=== PATIENT | male | born 1985 | race Caucasian/White ===

== ENCOUNTER 2017-12-15 16:46 | Emergency (ER) | payer BC, SELFPAY ==
[2017-12-15 16:58] VITALS: BP 156/95; PULSE 72; RESP 18; TEMP 36.8; O2SAT 97; BMI 37.5
--- NOTE | 2017-12-15 17:39 | HMH.EDUTC ---
[facility] [place] Clinical Impression: Viral upper respiratory illness Disposition: Home, Self-Care Condition on Discharge: Good Instructions: DI for Viral Upper Respiratory Infection -- Adult Additional Instructions: * No sign of bacterial infection. Likely viral. Virus can take 7-14 days to run their course * Nasal Saline to remove nasal drainage and help with nasal congestion. Hard to eat, drink, sleep with nasal congestion so important to keep nose cleaned out * Monitor Temp. Follow up if fevers develop * Encourage fluids, water, gatorade, powerade, pedialyte if infant/toddler/child * warm salt water gargles * warm fluids * sore throat lozenges * sleep elevated * humidifier/vaporizer * Bromfed may cause drowsiness. Know how it effects you (or your child) before driving, caring for small children, or sending your child to school. No other antihistamines/allergy medications while taking bromfed. * * Your throat swab was sent for culture. Those results are typically sent to your primary care. Be sure to follow up in 2-3 days if no improvement so they can review those results and treat if necessary. If you don't have primary care, I recommend you get one but in the mean time, you will have to return to a walk in clinic. Prescriptions: Brompheniramine/Pseudoephed/Dm [Bromfed DM Cough Syrup 5mL] 10 ml PO QID PRN #240 ml PRN Reason: Cough Referrals: Anahy Berrios [Primary Care Provider] - (Follow up IMMEDIATELY for new or worsening symptoms OR no noticeable improvement over the next 48-72 hours. 911 for difficulty breathing or swallowing) Time of Disposition: 18:11 Medical Decision Making Vital Signs: 12/15/17 16:58 Temperature 98.3 F Temperature Source Temporal Artery Scan Pulse Rate [Brachial] 72 Respiratory Rate 18 Blood Pressure [Right Arm] 156/95 Blood Pressure Mean [Right Arm] 115 Blood Pressure Source [Right Arm] Automatic Cuff Blood Pressure Position [Right Arm] Sitting 02 Sat by Pulse Oximetry 97 - Lab Data Lab results reviewed: Yes: I reviewed the patient's lab results. Flu A neg Flu B neg Strep neg - Max Inquiry Pt receiving controlled substance: No [facility] [place] - General Stated complaint: headache Time Seen by Provider: 12/15/17 17:35 Mode of Arrival: Ambulatory Source of Information: Patient Limitations: No Limitations Description of Symptoms (Recalled from Triage Doc. by RN): H/A, DIARRHEA, SINUS PRESSURE AND COUGH SINCE YESTERDAY HEENT Symptoms (Recalled from RN notes): Yes Resp Symptoms (Recalled from RN notes): Yes Skin Symptoms (Recalled from RN notes): No MS Symptoms (Recalled from RN notes): No Functional Status (Recalled from RN notes): NA - History of Present Illness Provider Complaint: Here w/ c/o I am sick and shitting. Not sure what else you want me to say. Was able to finally pull out other symptoms; headache, scratchy throat, nasal congestion. everyone in house has had either flu a, flu b, strep and now a URI within the last 2 weeks. Theraflu today hasn't helped. Diarrhea loose, 2-3 times today. No n/v/abdominal pain. - Related Data Previous Rx's Medication Instructions Recorded Brompheniramine/Pseudoephed/Dm 10 ml PO QID PRN #240 ml 12/15/17 [Bromfed DM Cough Syrup 5mL] Allergies Allergy/AdvReac Type Severity Reaction Status Date / Time No Known Allergies Allergy Unverified 09/27/17 15:35 - Worker's Comp Is this a Worker's Comp case?: No [facility] History I have reviewed the patient's past medical history: Yes (denies any PMHx) Medical History: Denies:: Diabetes Mellitus Type 1, Diabetes Mellitus Type 2, Hypertension Other Surgeries: Yes: Other (cholecystectomy) - Social History Smoking Status: Current every day smoker Alcohol Intake: never - Psychiatric History Expresses thoughts of harming self/others: None Suicide Plan Description: No Plan ROS Obtained: Yes Systems reviewed as appropriate & no additional complaints - Constitutional
--- NOTE | 2017-12-15 17:43 | ED_ITS ---
[facility] [place] Clinical Impression: Viral upper respiratory illness Disposition: Home, Self-Care Condition on Discharge: Good Instructions: DI for Viral Upper Respiratory Infection -- Adult Additional Instructions: * No sign of bacterial infection. Likely viral. Virus can take 7-14 days to run their course * Nasal Saline to remove nasal drainage and help with nasal congestion. Hard to eat, drink, sleep with nasal congestion so important to keep nose cleaned out * Monitor Temp. Follow up if fevers develop * Encourage fluids, water, gatorade, powerade, pedialyte if infant/toddler/ child * warm salt water gargles * warm fluids * sore throat lozenges * sleep elevated * humidifier/vaporizer * Bromfed may cause drowsiness. Know how it effects you (or your child) before driving, caring for small children, or sending your child to school. No other antihistamines/allergy medications while taking bromfed. * * Your throat swab was sent for culture. Those results are typically sent to your primary care. Be sure to follow up in 2-3 days if no improvement so they can review those results and treat if necessary. If you don't have primary care , I recommend you get one but in the mean time, you will have to return to a walk in clinic. Prescriptions: Brompheniramine/Pseudoephed/Dm [Bromfed DM Cough Syrup 5mL] 10 ml PO QID PRN # 240 ml PRN Reason: Cough Referrals: Anahy Berrios [Primary Care Provider] - (Follow up IMMEDIATELY for new or worsening symptoms OR no noticeable improvement over the next 48-72 hours. 911 for difficulty breathing or swallowing) Time of Disposition: 18:11 Medical Decision Making Vital Signs: 12/15/17 16:58 Temperature 98.3 F Temperature Source Temporal Artery Scan Pulse Rate [Brachial] 72 Respiratory Rate 18 Blood Pressure [Right Arm] 156/95 Blood Pressure Mean [Right Arm] 115 Blood Pressure Source [Right Arm] Automatic Cuff Blood Pressure Position [Right Arm] Sitting 02 Sat by Pulse Oximetry 97 - Lab Data Lab results reviewed: Yes: I reviewed the patient's lab results. Flu A neg Flu B neg Strep neg - Max Inquiry Pt receiving controlled substance: No [facility] [place] - General Stated complaint: headache Time Seen by Provider: 12/15/17 17:35 Mode of Arrival: Ambulatory Source of Information: Patient Limitations: No Limitations Description of Symptoms (Recalled from Triage Doc. by RN): H/A, DIARRHEA, SINUS PRESSURE AND COUGH SINCE YESTERDAY HEENT Symptoms (Recalled from RN notes): Yes Resp Symptoms (Recalled from RN notes): Yes Skin Symptoms (Recalled from RN notes): No MS Symptoms (Recalled from RN notes): No Functional Status (Recalled from RN notes): NA - History of Present Illness Provider Complaint: Here w/ c/o I am sick and shitting. Not sure what else you want me to say. Was able to finally pull out other symptoms; headache , scratchy throat, nasal congestion. everyone in house has had either flu a, flu b, strep and now a URI within the last 2 weeks. Theraflu today hasn't helped. Diarrhea loose, 2-3 times today. No n/v/abdominal pain. - Related Data Previous Rx's Medication Instructions Recorded Brompheniramine/Pseudoephed/Dm 10 ml PO QID PRN #240 ml 12/15/17 [Bromfed DM Cough Syrup 5mL] Allergies Allergy/AdvReac Type Severity Reaction Status Date / Time No Known Allergies Allergy Unverified 09/27/17 15:35 - Worker's Comp
[2017-12-15 18:13] LABS: UTC Influenza A Antigen Negative (Negative); UTC Influenza B Antigen Negative (Negative); UTC Strep Screen (Rapid) Negative (Negative)
[2017-12-15 18:17] VITALS: BP 138/93; PULSE 72; RESP 18; TEMP 36.8; O2SAT 97
== END 2017-12-15 18:18 | disposition home or self-care (01) ==
PROVIDERS: Emergency Provider Nurse Practitioner Family; PCP Family Medicine Addiction Medicine
DX: J06.9 Acute upper respiratory infection, unspecified (principal)
CPT/HCPCS: 87804; 87880; 99203

== ENCOUNTER 2020-06-19 16:04 | Emergency (ER) | payer BC, SELFPAY ==
[2020-06-19 16:34] VITALS: BP 141/100; PULSE 80; RESP 16; TEMP 37.1; O2SAT 97; BMI 39.9
--- NOTE | 2020-06-19 16:39 | HMH.EDUTC ---
[facility] [place] Clinical Impression: Diarrhea Qualifiers: Diarrhea type: unspecified type Qualified Code(s): R19.7 - Diarrhea, unspecified Disposition: Home, Self-Care Condition on Discharge: Good Instructions: Diarrhea, DI for Nausea -- Adult, Ondansetron, Dicyclomine, Preventing the Spread of Coronavirus Discharge Instructions Additional Instructions: ? Drink extra fluids with and between meals. If you have difficulty drinking, try very small amounts of water or suck on ice chips. ? Avoid fruit juices, as these do not replace minerals and can actually increase diarrhea. ? Children and adults can use sports drinks to replenish electrolytes. Younger children and infants should use products formulated for children, like oral rehydration solutions. ? Eat food in small amounts and let your stomach recover. ? Get lots of rest. You may feel tired or weak. ? No greasy or fried foods for the next 24-48 hours BRAT diet Bananas Rice Apples and [place] ? Make sure to drink plenty of liquids ? Return if needed ? Straight to ER if any life threatening symptoms ? Zofran as prescribed ? You was given an outpatient order for diarrhea panel, please collect specimen and bring back to outpatient lab then call back to the [facility] or follow up with family doctor for results Follow up with family doctor in the next 48-72 hours if no improvement You was tested for COVID, call back to the [facility] in the next 48-72 hours to see if your test results are back and the result You was given handout with instructions for self quarantine and self isolation make sure to follow those instructions Prescriptions: Ondansetron [Zofran 4mg ODT] 4 mg PO Q8HP PRN #10 tab.rapdis PRN Reason: Nausea Transmission Status: Received by [facility] # Dicyclomine HCl [Bentyl 10mg capsule] 10 mg PO TID PRN #15 cap PRN Reason: Cramping Transmission Status: Received by [facility] # Referrals: PCP,No [Primary Care Provider] - As needed Time of Disposition: 17:10 Medical Decision Making - Max Inquiry Pt receiving controlled substance: No Max was queried for this patient: No Vital Signs: 06/19/20 16:34 06/19/20 17:08 06/19/20 17:10 Temperature 98.7 F 98.7 F Temperature Source Oral Pulse Rate 88 Pulse Rate [Right Brachial] 80 88 Respiratory Rate 16 21 16 Blood Pressure 130/84 Blood Pressure [Right Arm] 141/100 H 130/84 Blood Pressure Mean [Right Arm] 113 99 Blood Pressure Source [Right Arm] Automatic Cuff Automatic Cuff Blood Pressure Position [Right Arm] Sitting Sitting 02 Sat by Pulse Oximetry 97 99 Oxygen Delivery Method Room Air Room Air Orders (Tests/Meds): ED MEDICATIONS Discontinued Medications Generic Name Dose Route Start Last Admin Trade Name Freq PRN Reason Stop Dose Admin Dicyclomine HCl 10 mg 06/19/20 16:34 06/19/20 16:43 Bentyl 10mg Capsule PO 06/19/20 16:35 10 mg ONCE ONE Administration Ondansetron HCl 4 mg 06/19/20 16:42 06/19/20 16:43 Zofran 4mg Odt SL 06/19/20 16:43 4 mg ONCE ONE Administration ORDERS Category Date Time Status Covid-19 Nasal PCR Sendout Terry Stat Lab 06/19/20 17:00 Received Diarrhea 23 Panel, PCR Stat Lab 06/19/20 16:34 Ordered Medical Decision Narrative: No vomiting or diarrhea since arrival States that he feels better after medication that it helped with nausea and cramping [facility] [place] - General Stated complaint: Diarrehea,[place],AP Time Seen by Provider: 06/19/20 16:39 Mode of Arrival: Ambulatory Source of Information: Patient Limitations: No Limitations Description of Symptoms (Recalled from Triage Doc. by RN): PATIENT C/O WATERY DIARRHEA, AND HEADACHE HEENT Symptoms (Recalled from RN notes): Yes Resp Symptoms (Recalled from RN notes): No Skin Symptoms (Recalled from RN notes): No MS Symptoms (Recalled from RN notes): No Functional Status (Recalled from RN notes): WNL - History of Present Illness Provider Complaint: Patient s
[2020-06-19 17:08] VITALS: BP 130/84; PULSE 88; RESP 21; TEMP 37.1; O2SAT 99
[2020-06-19 17:10] VITALS: BP 130/84; PULSE 88; RESP 16; O2SAT 99
[2020-06-21 13:20] LABS: Covid-19 Nasal PCR Sendout Lex Not Detected
== END 2020-06-19 17:10 | disposition home or self-care (01) ==
PROVIDERS: Emergency Provider Nurse Practitioner
DX: R19.7 Diarrhea, unspecified (principal); R51 Headache; Z03.818 Encounter for observation for suspected exposure to other biological agents ruled out
CPT/HCPCS: 99202; U0004

== ENCOUNTER 2020-09-28 12:48 | Emergency (ER) | payer BC, SELFPAY ==
[2020-09-28 12:49] VITALS: BP 167/92; PULSE 78; RESP 16; TEMP 37; O2SAT 100; BMI 42.0
[2020-09-28 13:00] VITALS: BMI 39.8
--- NOTE | 2020-09-28 13:00 | CT_ITS ---
PROCEDURE: CT ABDOMEN PELVIS WO CON CLINICAL INDICATION: possible kidney stone Right flank pain. History of kidney stones COMPARISON: CT ABDPELW/O CT ABD PELVIS W/O CONTRAST from 05/18/2017 TECHNIQUE: Axial images obtained with sagittal and coronal reformats. All CT scans at the facility use one or more dose reduction, viz: automated exposure control, ma/kV adjustment per patient size (including targeted exams where dose is matched to indication, i.e. head), or iterative reconstruction technique. FINDINGS: LOWER THORAX: There are few small nodules in the left lower lobe which appear stable. These are 5 mm or less. ABDOMEN & PELVIS: The liver, spleen, adrenal glands, pancreas, and kidneys have an unremarkable appearance. No renal or ureteral calculi. No hydronephrosis. No evidence of appendicitis. No intestinal obstruction or free air the. There is a small umbilical hernia which contains fat. No evidence of diverticulitis. There are scattered small nodes in the mesenteries and right lower quadrant. These are nonspecific. There appears to be an elongated diverticulum in the right lower quadrant projecting off of the small bowel best seen on images number 96 through 99 with some soft tissue density at the tip of the diverticulum. This could represent a Meckel's diverticulum. This however is not at the terminal ileum region but more distal 1/3 of the ileum. No inflammation evident around this lesion. No acute bony findings. IMPRESSION: 1. No acute finding. No evidence of renal or ureteral calculi. No evidence of appendicitis. 2. Elongated small bowel diverticulum in the right lower quadrant possibly related to a Meckel's diverticulum. 3. Other nonacute findings as described above. Dictated by: Nehemias George MD 09/28/2020 14:31 Nehemias George MD in [place] 09/28/2020 14:31
--- NOTE | 2020-09-28 13:01 | XR_ITS ---
PROCEDURE: XR LUMBAR SPINE 2-3V CLINICAL INDICATION: back pain COMPARISON: No exams were available for comparison FINDINGS: No fracture or dislocation. No lytic or blastic change. There is normal mineralization. There is decrease in the L5-S1 disc space suggesting mild degenerative disc disease. Other findings:None. IMPRESSION: Mild degenerative disc disease L5-S1 otherwise negative Dictated by: Nehemias George MD 09/28/2020 16:03 Nehemias George MD in [place] 09/28/2020 16:03
[2020-09-28 13:24] LABS: Basophils # 0.1 K/mm3 (0-0.2); Eosinophils # 0.2 K/mm3 (0.0-0.4); Eosinophils % 3.1 % (0.1-12.0); Hematocrit 54.2 % (42.0-52.0); Lymphocytes # 2.8 K/mm3 (0.7-4.5); Lymphocytes % 34.9 % (10-50); Mean Corpuscular HGB Conc 33.4 g/dL (31.8-35.4); Mean Corpuscular Hemoglobin 32.4 pg (27.0-31.2); Mean Platelet Volume 7.1 fl (7.4-10.4); Monocytes # 0.5 K/mm3 (0.1-1.0); Monocytes % 5.8 % (1.7-9.3); Neutrophils # 4.3 K/mm3 (1.8-7.8); Neutrophils % 55.1 % (37.0-80.0); Platelet Count 385 K/mm3 (142-424); Red Blood Count 5.59 M/mm3 (4.60-6.20); Red Cell Distribution Width 12.9 % (11.5-17.5); White Blood Count 7.9 K/mm3 (4.8-10.8)
[2020-09-28 13:25] LABS: Hemoglobin 18.1 g/dL (14.1-18.0)
--- NOTE | 2020-09-28 13:26 | PC.NURSE ---
patient to radiology at 1319
[2020-09-28 13:35] LABS: Alanine Aminotransferase 87 U/L (12-78); Albumin Level 4.8 g/dl (3.5-5.0); Albumin/Globulin Ratio 1.4 (1.1-1.8); Alkaline Phosphatase 107 U/L (38-126); Amylase 101 U/L (30-110); Anion Gap 13.9 mEq/L (5-15); Aspartate Amino Transferase 54 U/L (17-59); Bilirubin,Total 0.8 mg/dl (0.2-1.3); Blood Urea Nitrogen 18 mg/dl (9-20); Calcium 9.9 mg/dl (8.4-10.2); Carbon Dioxide 27 mmol/L (22.0-30.0); Chloride 103 mmol/L (98-107); Creatinine Clearance Estimated 230 mL/min (50-200); Estimated Glomerular Filt Rate 97 ml/min (>60); GFR (African American) 117 ML/MIN (>60); Globulin 3.5 g/dL (1.3-3.2); Glucose 102 mg/dl (74-100); Lipase 243 U/L (23-300); Potassium 3.9 mmoL/L (3.5-5.1); Sodium 140 mmol/L (136-145); Total Protein,Serum 8.3 g/dl (6.3-8.2)
--- NOTE | 2020-09-28 13:39 | PC.NURSE ---
Pt back from CT
--- NOTE | 2020-09-28 13:43 | HMH.EDGENADL ---
ED Disposition Clinical Impression: Lumbago Qualifiers: Chronicity: acute Back pain laterality: right Sciatica presence: without sciatica Qualified Code(s): M54.5 - Low back pain Disposition: Home, Self-Care Condition on Discharge: Good Instructions: DI for Acute Pain -- Adult Prescriptions: Cyclobenzaprine HCl [Cyclobenzaprine 5mg Tab] 5 mg PO Q8HP PRN #30 tab PRN Reason: pain/spasm Transmission Status: Received by [facility] #[id number] Ketorolac Tromethamine [Toradol 10mg tablet] 10 mg PO Q6H 5 Days #20 tab Transmission Status: Received by [facility] #[id number] Referrals: PCP,No [Primary Care Provider] - - Critical Care Critical Care Time: No Attestation: On 09/28/20, the high probability of a clinically significant, sudden or life threatening deterioration of the following system(s) required my full and direct attention, intervention and personal management. The time I documented below is in addition to time spent performing reported procedures but includes the following listed in this critical care notation. Medical Decision Making - Medical Records Medical records reviewed: Yes: I reviewed the patient's medical records. - Max Inquiry Pt receiving controlled substance: No Vital Signs: 09/28/20 12:49 09/28/20 13:49 09/28/20 14:00 Temperature 98.6 F Temperature Source Oral Pulse Rate [Right Brachial] 78 85 85 Respiratory Rate 16 Blood Pressure [Right Arm] 167/92 H 157/96 H 155/96 H Blood Pressure Mean [Right Arm] 117 116 115 02 Sat by Pulse Oximetry 100 100 99 Oxygen Delivery Method Room Air Room Air - Lab Data Lab results reviewed: Yes: I reviewed the patient's lab results. Lab Results 09/28/20 13:00: WBC 7.9, RBC 5.59, Hgb 18.1 H, Hct 54.2 H, MCV 97.0 H, MCH 32.4 H, MCHC 33.4, RDW 12.9, Plt Count 385, MPV 7.1 L, Neut % (Auto) 55.1, Lymph % (Auto) 34.9, [place] % (Auto) 5.8, Eos % (Auto) 3.1, Baso % (Auto) 1.0, Neut # (Auto) 4.3, Lymph # (Auto) 2.8, [place] # (Auto) 0.5, Eos # (Auto) 0.2, Baso # (Auto) 0.1 09/28/20 13:00: Sodium 140, Potassium 3.9, Chloride 103, Carbon Dioxide 27, Anion Gap 13.9, BUN 18, Creatinine 0.90, Estimated Creat Clear 230, Estimated GFR 97, Est GFR ( Amer) 117, Glucose 102 H, Calcium 9.9, Total Bilirubin 0.8, AST 54, ALT 87 H, Alkaline Phosphatase 107, Total Protein 8.3 H, Albumin 4.8, Globulin 3.5 H, Albumin/Globulin Ratio 1.4, Amylase 101, Lipase 243 Result diagrams: 09/28/20 13:00 09/28/20 13:00 Orders (Tests/Meds): ED MEDICATIONS Discontinued Medications Generic Name Dose Route Start Last Admin Trade Name Freq PRN Reason Stop Dose Admin Sodium Chloride 1,000 mls @ 999 mls/hr 09/28/20 13:15 09/28/20 13:57 Sod Chlor 0.9% 1000ml Bag IV 09/28/20 14:15 999 mls/hr .Q1H1M CRAIG Administration Ketorolac Tromethamine 30 mg 09/28/20 13:01 09/28/20 13:15 Ketorolac 30mg/Ml Vial IV 09/28/20 13:02 30 mg ONCE ONE Administration Morphine Sulfate 4 mg 09/28/20 14:29 09/28/20 14:32 Morphine 4mg/Ml Syringe IV 09/28/20 14:30 2 mg ONCE ONE Administration Ondansetron HCl 4 mg 09/28/20 13:16 09/28/20 13:25 Ondansetron 4mg/2ml Vial IV 09/28/20 13:17 4 mg ONCE ONE Administration Orphenadrine Citrate 60 mg 09/28/20 13:43 09/28/20 13:57 Orphenadrine Citrate 60mg/2ml Vial IV 09/28/20 13:44 60 mg ONCE ONE Administration ORDERS Category Date Time Status XR lumbar spine 2-3V Stat Exams 09/28/20 13:01 Taken Urinalysis and Microscopic Stat Lab 09/28/20 13:00 Ordered - Radiology Data #1 Image(s): L-Spine Image Reviewed: Yes I reviewed the patient's radiology results Preliminary Findings: Normal/NAD (mild degenerative changes at L3/L4/L5) - CT Data CT Scan: Abdomen, Pelvis Time Received: 14:[address] Reviewed: Yes: I have reviewed the patient's CT results, I have viewed the radiologist's interpretation Preliminary Findings: Normal/NAD General Adult HPI - General Chief complain
[2020-09-28 13:49] VITALS: BP 157/96; PULSE 85; O2SAT 100
[2020-09-28 14:00] VITALS: BP 155/96; PULSE 85; O2SAT 99
[2020-09-28 14:51] VITALS: BP 149/87; PULSE 85; RESP 15; TEMP 37; O2SAT 98
[2020-09-28 14:56] LABS: Microscopic, Urine URINE MICROSCOPIC (MICROSCOPIC)
[2020-09-28 15:02] LABS: Appearance,Urine CLEAR (Clear); Bilirubin,Urine Negative (Negative); Blood, Urine Negative (Negative); Color,Urine YELLOW (Yellow); Glucose,Urine (UA) Negative (Negative); Ketones,Urine TRACE (Negative); Leukocyte Esterase,Urine Negative (Negative); Nitrate,Urine Negative (Negative); PH,Urine 6.5 (5.0-8.5); Protein,Urine 1+ (Negative); Specific Gravity, Urine 1.025 (1.005-1.030)
[2020-09-28 15:09] LABS: Mucus,Urine 1+ /lpf; Squamous Epithelial Cell,Urine TNTC #/hpf (0-5)
== END 2020-09-28 14:53 | disposition home or self-care (01) ==
PROVIDERS: Emergency Provider Emergency Medicine
DX: M54.5 Low back pain (principal); F17.210 Nicotine dependence, cigarettes, uncomplicated
CPT/HCPCS: 72100; 74176; 80053; 81001; 82150; 83690; 85025; 96365; 96375; 99284; J2405

== ENCOUNTER 2025-01-15 15:07 | Emergency (ER) | payer OTHER, SELFPAY ==
[2025-01-15] VITALS (7 sets, daily range): BP systolic 136–155; BP diastolic 86–113; PULSE 62–81; RESP 13–21; TEMP 36.8; O2SAT 95–99; BMI 46.5
--- NOTE | 2025-01-15 15:44 | CT_ITS ---
PROCEDURE INFORMATION: Exam: CT Head Without Contrast Exam date and time: 01/15/2025 4:12 PM Age: 39 years old Clinical indication: Pain; States headache for 2 days; Medication doesn't help; Additional info: Migraine / worse [place] TECHNIQUE: Imaging protocol: Computed tomography of the head without contrast. Radiation optimization: All CT scans at this facility use at least one of these dose optimization techniques: automated exposure control; mA and/or kV adjustment per patient size (includes targeted exams where dose is matched to clinical indication); or iterative reconstruction. COMPARISON: No relevant prior studies available. FINDINGS: Brain: Normal. No hemorrhage. Unremarkable white matter. No mass effect. Cerebral ventricles: No ventriculomegaly. Pituitary gland and sella: Empty sella. Paranasal sinuses: Visualized sinuses are unremarkable. No fluid levels. Mastoid air cells: Visualized mastoid air cells are well aerated. Bones: Crowding of the foramen magnum. Soft tissues: Unremarkable. IMPRESSION: Findings of which can be seen in idiopathic intracranial hypertension. Consider nonurgent MRI for further assessment. Otherwise, unremarkable exam.
--- NOTE | 2025-01-15 15:48 | ED_ITS ---
<Statement entered by Beni Everett MD - 01/15/25 23:40> I was consulted by the LAURY, and we discussed the complexity of the problems being addressed. I approved the treatment and management plan for this patient's care in the emergency department, thus performing a substantive portion of the medical decision making. Beni Everett MD Discharge Plan Disposition Patient Disposition: Home, Self-Care Condition: Good Prescriptions Prescriptions: No Action ketorolac 10 MG tablet 10 mg PO Q6H 5 Days Qty: 20 0RF cyclobenzaprine 5 MG tablet 5 mg PO Q8HP PRN (Reason: pain/spasm) Qty: 30 0RF Referrals Follow up/Referrals: Calvin Carpenter [Primary Care Provider] - See instructions Activity Restrictions/Add. Instructions Additional Instructions/Restrictions: Today your CT showed findings that could indicate idiopathic intracranial hypertension. As we discussed, you will need to follow-up with neuro, they will call you with an appointment. If your headache returns or your vision changes at all it is imperative that you come to the ED. Clinical Impressions Clinical Impression: Headache Qualifiers: Headache type: unspecified Headache chronicity pattern: unspecified pattern I ntractability: not intractable Qualified Code(s): R51.9 - Headache, unspecified Instructions Patient Instructions: DI for Headache Print Language Print Language: Frisian Discharge ED Provider: Beni Everett General Adult HPI General Chief complaint: Headache Stated complaint: Migraine X 2days with N/V Time Seen by Provider: 01/15/25 15:18 History of Present Illness HPI narrative: patient is a 39 year old male who presents to the ED for complaints of a headache that has been present since Tuesday. Patient describes headache as constant, occipital, & throbbing in nature. He describes it as the worst headache he has ever had. Related Data Previous Rx's ?Medication ?Instructions ?Recorded cyclobenzaprine 5 mg tablet 5 mg PO Q8HP PRN pain/spasm #30 20 tabs ketorolac 10 mg tablet 10 mg PO Q6H 5 days #20 tabs 09/28/20 Allergies Allergy/AdvReac Type Severity Reaction Status Date / Time No Known Allergies Allergy Verified 09/28/20 13:40 PFSH PFS Disclaimer: The information contained in this section may have been updated after the patient was seen, as this information can be updated by other users. Social History Smoking Status: Current every day smoker tobacco type: cigarettes packs per day: 1 alcohol intake: never current occupational status: employed Travel in the last 8 weeks: None housing: house Have you lived/traveled outside [place] in past 30 days?: No Contact w/someone who lives/traveled outside US past 30 days?: No Exposure to someone with infectious disease in past 14 days?: No Do you have a fever (greater than 100.4 F or 38 C)?: No Have you tested positive for COVID-19: No Exposed to someone with COVID-19 in past 14 days?: No Do you have a sore throat?: No Do you have a cough?: No Do you have any weakness?: No Do you have any diarrhea?: No Are you experiencing any unusual bleeding?: No Do you have any muscle aches/pain?: No Do you have any abdominal pain?: No Are you experiencing loss of taste or smell?: No Other Medical History Have you received the Flu Vaccine for this season: No Have you received the Pneumonia Vaccine: No ROS Obtained: Yes Systems reviewed as appropriate & no additional complaints except as documented Physical Exam General General appearance: alert and in no apparent distress Head Head exam: atraumatic and normocephalic Expanded Head Exam Head exam physical: Absent hematoma or tenderness of temporal artery Eye Eye exam: Present normal appearance, PERRL and EOMI; Absent conjunctival redness, jaundice, nystagmus, periorbital swelling or periorbital tenderness ENT ENT exam: Present normal exam Neck Neck exam: Present normal inspection Chest Chest inspection: Present normal inspection and symmetric chest wall rise; Absent tenderness Respiratory Respiratory exam: Present normal lung sounds bilaterally Cardiovascular Cardiovascular exam: Present regular rate Abdominal Exam Abdominal exam: Present soft and normal bowel sounds; Absent tenderness Extremities Exam Extremities exam: Present normal inspection and full ROM Back Exam Back exam: Present normal inspection and full ROM Neurological Exam Neurological exam: Present alert, oriented X3, normal gait and other (No nystagmus); Absent motor sensory deficit Psychiatric Psychiatric exam: Present normal affect and normal mood Skin Skin exam: Present warm and dry Medical Decision Making Medical Records Screening: Per USPSTF and CDC recommendations, given the prevalence of disease in our region, it is our hospital?s policy to screen for HIV and viral Hepatitis for all patients aged 18 and over and those with ongoing risk factors. Max Inquiry Pt receiving controlled substance: No Vital Signs: 01/15/25 15:35 01/15/25 16:57 01/15/25 17:00 Temperature 98.2 F Temperature Source Oral Pulse Rate 62 68 Pulse Rate [Radial] 81 Respiratory Rate 18 16 13 Blood Pressure 146/97 H 140/86 Blood Pressure [Left Arm] 155/113 H Blood Pressure Mean 100 Blood Pressure Mean [Left Arm] 127 Blood Pressure Source Blood Pressure Source [Left Arm] Automatic Cuff Blood Pressure Position Blood Pressure Position [Left Arm] Sitting 02 Sat by Pulse Oximetry 95 98 99 Oxygen Delivery Method Room Air Room Air Room Air 01/15/25 17:15 01/15/25 17:30 01/15/25 17:45 Temperature Temperature Source Pulse Rate 66 65 63 Pulse Rate [Radial] Respiratory Rate 13 14 21 Blood Pressure 140/91 H 137/90 153/103 H Blood Pressure [Left Arm] Blood Pressure Mean Blood Pressure Mean [Left Arm] Blood Pressure Source Blood Pressure Source [Left Arm] Blood Pressure Position Blood Pressure Position [Left Arm] 02 Sat by Pulse Oximetry 98 98 99 Oxygen Delivery Method Room Air Room Air Room Air 01/15/25 18:39 Temperature 98.2 F Temperature Source Oral Pulse Rate 63 Pulse Rate [Radial] Respiratory Rate 19 Blood Pressure 136/98 H Blood Pressure [Left Arm] Blood Pressure Mean Blood Pressure Mean [Left Arm] Blood Pressure Source Automatic Cuff Blood Pressure Source [Left Arm] Blood Pressure Position Sitting Blood Pressure Position [Left Arm] 02 Sat by Pulse Oximetry Oxygen Delivery Method Room Air Lab Data Lab Results 01/15/25 15:50: WBC 9.3, RBC 5.35, Hgb 17.3, Hct 51.9, MCV 97.0 H, MCH 32.3 H, MCHC 33.3, RDW 12.2, Plt Count 345, MPV 9.3, Neut % (Auto) 61.9, Lymph % (Auto) 27.7, [place] % (Auto) 5.5, Eos % (Auto) 3.9, Baso % (Auto) 0.8, Neut # (Auto) 5.7, Lymph # (Auto) 2.6, [place] # (Auto) 0.5, Eos # (Auto) 0.4, Baso # (Auto) 0.1, Sodium 142, Potassium 4.0, Chloride 103, Carbon Dioxide 29, Anion Gap 14.0, BUN 10, Creatinine 0.90, Estimated Creat Clear 129, Estimated GFR 94, Est GFR ( Amer) 114, Glucose 98, Calcium 8.9, Magnesium 2.1, Total Bilirubin 0.8, AST 59, ALT 74, Alkaline Phosphatase 98, Total Protein 7.9, Albumin 4.3, G lobulin 3.6 H, Albumin/Globulin Ratio 1.2, HCV Ab MELINDA w/Rflx PCR Qn Negative, HIV Ag/Ab Combo Qual Negative 01/15/25 15:50 01/15/25 15:50 Orders (Tests/Meds): ED MEDICATIONS Discontinued Medications Generic Name Dose Route Start Last Admin Trade Name Freq PRN Reason Stop Dose Admin Diphenhydramine HCl 25 mg 01/15/25 15:44 01/15/25 15:57 Diphenhydramine 50mg/Ml Vial IV 01/15/25 15:45 25 mg ONCE ONE Administration Droperidol 2.5 mg 01/15/25 17:36 01/15/25 18:03 Droperidol 5mg/2ml Vial IV 01/15/25 17:37 2.5 mg ONCE ONE Administration Sodium Chloride 1,000 mls @ 999 mls/hr 01/15/25 15:45 01/15/25 15:58 Sod Chlor 0.9% 1000ml Bag IV 01/15/25 16:45 999 mls/hr .Q1H1M ONE Administration Magnesium Sulfate 2 gm in 50 mls @ 50 mls/hr 01/15/25 16:42 01/15/25 16:51 Magnesium Sulfate 2gm/50ml Premix IV 01/15/25 17:41 50 mls/hr ONCE ONE Administration Ketorolac Tromethamine 15 mg 01/15/25 16:42 01/15/25 16:51 Ketorolac 30mg/Ml Vial IV 01/15/25 16:43 15 mg ONCE ONE Administration Ondansetron HCl 4 mg 01/15/25 15:44 01/15/25 15:57 Ondansetron 4mg/2ml Vial IV 01/15/25 15:45 4 mg ONCE ONE Administration ORDERS Category Date Time Status CT head/brain wo con Stat Cat Scan 01/15/25 15:44 Completed CBC w/Auto Diff [Complete Blood Count Auto Diff] Stat Lab 01/15/25 15:50 Completed CMP [Comprehensive Metabolic Panel] Stat Lab 01/15/25 15:50 Completed HIV Combo Stat Lab 01/15/25 15:50 Completed Hepatitis C Ab Qual. W/ RFX Stat Lab 01/15/25 15:50 Completed Magnesium Stat Lab 01/15/25 15:50 Completed Medical Decision Narrative: In summary, patient is a 39 year old male who presents to the ED for complaints of a headache that has been present since Tuesday. Patient describes headache as constant, occipital, & throbbing in nature. He describes it as the worst headache he has ever had. Patient has taken acetaminophen and Imitrex without any relief. He states that hes had migraines for several years however has not really been evaluated for them. Denies previous imaging. Denies any trauma. Denies history of head bleeds. He denies any visual disturbances, denies posterior neck pain, denies neck stiffness, denies chest pain, shortness of breath, abdominal pain, nausea, vomiting, dysuria. Upon initial evaluation patient is alert, oriented and cooperative. He is hemodynamically stable other than hypertension. His physical exam is unremarkable, PERRLA. No nystagmus. EOM intact. No neck tenderness or stiffness. Discussed with patient that we will proceed with CT of the head due to worst headache of his life, labs and migraine cocktail. CBC unremarkable for any leukocytosis, stable H&H. CMP unremarkable for any actionable abnormalities. CT of the head remarkable for findings that are consistent with idiopathic intracranial hypertension, empty sella. Consider nonemergent MRI. I spoke with Dr. Dunne, neurosurgery at who advises that patient will need outpatient follow-up. He states they will attempt to get an appointment within 1 to 2 weeks. He advises to tell patient if his headache returns or if he has visual deficits he needs to present to the ED. After medication, patient's headache is a 4 out of 10. He denies any visual changes, denies neck pain or neck stiffness. Administered droperidol 2.5. Patient's headache went to a 2 out of 10. Patient did not develop any additional neurological symptoms while in the ED. he is ambulatory in the ED without difficulty, steady gait noted Given this, I feel that patient is safe to be discharged home at this time. Advised him to continue multimodal pain control including acetaminophen and ibuprofen. Discussed that he will need to follow-up with neurosurgery/neuro- ophthalmology at but they will call him for an appointment. Discussed strict return precautions to the ED including but not limited to worsening of headache or visual disturbances. Patient is hemodynamically stable and ambulatory upon leaving the ED. Critical Care Critical Care Time Critical Care Time: No
[2025-01-15] MEDS: ONDANSETRON 4MG/2ML VIAL 4 MG IV (15:57)
[2025-01-15] MEDS: diphenhydrAMINE 50MG/ML VIAL 25 MG IV (15:57)
[2025-01-15] MEDS: 0.9 % SODIUM CHLORIDE 1000ML 1,000 ML 999 ML IV (15:58)
[2025-01-15 16:01] LABS: Basophils # 0.1 K/mm3 (0-0.2); Basophils % 0.8 % (0.1-2.0); Eosinophils # 0.4 K/mm3 (0.0-0.4); Eosinophils % 3.9 % (0.1-12.0); Hematocrit 51.9 % (42.0-52.0); Hemoglobin 17.3 g/dL (14.1-18.0); Lymphocytes # 2.6 K/mm3 (0.7-4.5); Lymphocytes % 27.7 % (10-50); Mean Corpuscular HGB Conc 33.3 g/dL (31.8-35.4); Mean Corpuscular Hemoglobin 32.3 pg (27.0-31.2); Mean Platelet Volume 9.3 fl (7.4-10.4); Monocytes # 0.5 K/mm3 (0.1-1.0); Monocytes % 5.5 % (1.7-9.3); Neutrophils # 5.7 K/mm3 (1.8-7.8); Neutrophils % 61.9 % (37.0-80.0); Platelet Count 345 K/mm3 (142-424); Red Blood Count 5.35 M/mm3 (4.60-6.20); Red Cell Distribution Width 12.2 % (11.5-17.5); White Blood Count 9.3 K/mm3 (4.8-10.8)
[2025-01-15 16:10] LABS: Alanine Aminotransferase 74 U/L (12-78); Albumin Level 4.3 g/dl (3.5-5.0); Albumin/Globulin Ratio 1.2 (1.1-1.8); Alkaline Phosphatase 98 U/L (38-126); Aspartate Amino Transferase 59 U/L (17-59); Bilirubin,Total 0.8 mg/dl (0.2-1.3); Blood Urea Nitrogen 10 mg/dl (9-20); Calcium 8.9 mg/dl (8.4-10.2); Carbon Dioxide 29 mmol/L (22.0-30.0); Chloride 103 mmol/L (98-107); Creatinine Clearance Estimated 129 mL/min (50-200); Estimated Glomerular Filt Rate 94 ml/min (>60); GFR (African American) 114 ML/MIN (>60); Globulin 3.6 g/dL (1.3-3.2); Glucose 98 mg/dl (74-100); Sodium 142 mmol/L (136-145); Total Protein,Serum 7.9 g/dl (6.3-8.2)
--- NOTE | 2025-01-15 16:20 | PC.NURSE ---
PT RETURNED FROM CT
[2025-01-15 16:40] LABS: Magnesium 2.1 mg/dl (1.6-2.3)
[2025-01-15] MEDS: MAGNESIUM SULFATE IN WATER 2 GM/50 ML PIGGYBACK IV (16:51)
[2025-01-15] MEDS: KETOROLAC 30MG/ML VIAL 15 MG IV (16:51)
--- NOTE | 2025-01-15 17:17 | PC.NURSE ---
calling [place] for consult at this time.
--- NOTE | 2025-01-15 17:21 | PC.NURSE ---
Lore our PA o/p with at this time.
[2025-01-15 17:23] LABS: HIV Combo NEGATIVE (Negative)
[2025-01-15 17:32] LABS: Hepatitis C Ab Qual. W/ RFX NEGATIVE (Negative)
--- NOTE | 2025-01-15 17:46 | ECG_ITS ---
APPROVED REPORT Exam: Resting ECG HR:59 bpm ECG Measurements Heart Rate 59 AXES WA 158 P 47 QRSd 102 QRS 16 QT 419 T -2 QTc 419 Conclusion SINUS BRADYCARDIA NONSPECIFIC T-WAVE ABNORMALITY BORDERLINE ECG UNCONFIRMED REPORT Electronically signed by : JOSÉ DIAZ, 01/17/2025 06:27:05
[2025-01-15] MEDS: droPERidol 5MG/2ML VIAL 2.5 MG IV (18:03)
--- NOTE | 2025-01-15 18:38 | PC.NURSE ---
Pt ambulated around nurses station w/ standby assistance. Denies dizziness or being light headed. Provider deems pt acceptable for discharge.
--- NOTE | 2025-01-15 20:57 | PC.NURSE ---
Called patient to come back to get disk of scans. Pt said he would not be back tonite, stated he would come by tomorrow. Disk given to registration and told pt it would be there.
== END 2025-01-15 18:40 | disposition home or self-care (01) ==
PROVIDERS: Nurse Practitioner; Emergency Provider Emergency Medicine; PCP Family Medicine
DX: R51.9 Headache, unspecified (principal); R11.2 Nausea with vomiting, unspecified; F17.210 Nicotine dependence, cigarettes, uncomplicated
CPT/HCPCS: 70450; 80053; 83735; 85025; 86803; 87389; 93005; 96361; 96365; 96374; 96375; 99284; J1200; J1790; J1885; J2405; J3475; J7030

== ENCOUNTER 2025-07-27 18:45 | Emergency (ER) | payer OTHER, SELFPAY ==
--- OUTSIDE RECORDS SUMMARY | 2025-06-20 07:45 | XMS_ITS | Encounter Summary ---
Author Organization Healthcare Address [address] [place] [address] Care Team Providers Care Maltster Name Role Phone Pcp, No Primary Care Provider Unavailabl e Encounter Details Date Type Department Care Team (Late st Contact Info) Description 06/20/2025 7:45 AM EDT Ancillary Procedure [facility] [address] [place] [address] Social History Tobacco Use Types Packs/Day Years Used Date Smoking Tobacco: Every Day Cigarettes 1 25.8 Started: 1999 Passive Smoke Exposure: Past Smokeless Tobacco: Former Snuff, Chew Quit: 1999 Sex and Gender Information Value Date Recorded Sex Assigned at Not on file Legal Sex Male 8:53 PM EDT Gender Identity Not on file Sexual Orientation Not on file documented as of this encounter Plan of Treatment Upcoming Encounters Date Type Department Care Team (Late st Contact Info) Description 12/23/2025 10:00 AM EDT Office Visit [facility] [address] [place] [address] Radha Zaidi MD [address] [place] [phone] documented as of this encounter Procedures Procedure Name Priority Date/Time Associated Diagnosis Comments OCT, RETINA - OU - BOTH EYES Routine 06/20/2025 1:57 PM EDT IIH (idiopathic intracranial hypertension) documented in this encounter Results * OCT, Retina - OU - Both Eyes (06/20/2025 1:57 PM EDT) Anatomical Region Laterality Modality Head Optical Coherenc e Tomography Narrative 06/20/2025 1:57 PM EDT Right Eye Quality was good. Findings include normal observations. Left Eye Quality was good. Findings include normal observations. us Radha Zaidi MD OPHTH TOMOGRAPHY Final Resul t documented in this encounter Visit Diagnoses Not on filedocumented in this encounter Additional Health Concerns Assessment Noted Time A fall risk assessment has been complete d for the patient 06/20/2025 10:07 AM EDT A Body Mass Index follow-up plan has been documented for the patient 01/18/2025 3:07 PM EDT documented as of this encounter Care Teams Maltster Relationship Specialty Start Date End Date Pcp, [place] [address] PCP - General Family Medicine 01/18/25 documented as of this encounter
--- OUTSIDE RECORDS SUMMARY | 2025-06-20 07:45 | XMS_ITS | Encounter Summary ---
Author Organization Healthcare Address [address] [place] [address] Care Team Providers Care Supervisor Power Reactor Name Role Phone Pcp, No Primary Care Provider Unavailabl e Encounter Details Date Type Department Care Team (Late st Contact Info) Description 06/20/2025 7:45 AM EDT Ancillary Procedure [facility] [address] [place] [phone] Social History Tobacco Use Types Packs/Day Years [...] Description 12/23/2025 10:00 AM EDT Office Visit [facility] [address] [place] [address] Radha Zaidi MD [address] [facility] [address] [place] [address] documented as of this encounter Procedures Procedure Name Priority Date/Time Associated Diagnosis Comments AUTOMATED VISUAL FIELD, EXTENDED - OU - BOTH EYES Routine 06/20/2025 1:55 PM EDT IIH (idiopathic intracranial hypertension) documented in this encounter Results * Automated Visual Field, Extended - OU - Both Eyes (06/20/2025 1:55 PM EDT) Anatomical Region Laterality Modality Head Visual Field Narrative 06/20/2025 1:55 PM EDT Right Eye Threshold was 24-2. Strategy was KYLE. Reliability was good. Foveal threshold was normal. Findings include non-specific defects. Left Eye Threshold was 24-2. Strategy was KYLE. Reliability was good. Foveal threshold was normal. Findings include non-specific defects. Notes OD MD of - 1.24 db OS MD of - 2.09 db us Radha Zaidi MD OPHTH VISUAL FIELD Final Res ult documented in this encounter Visit Diagnoses Not on filedocumented in this encounter Additional Health Concerns Assessment Noted Time A fall risk assessment has been complete d for the patient 06/20/2025 10:07 AM EDT A Body Mass Index follow-up plan has been documented for the patient 01/18/2025 3:07 PM EDT documented as of this encounter Care Teams Supervisor Power Reactor Relationship Specialty Start Date End Date Pcp, [place] [address] PCP - General Family Medicine 01/18/25 documented as of this encounter
--- OUTSIDE RECORDS SUMMARY | 2025-06-20 07:50 | XMS_ITS | Encounter Summary ---
Author Organization Healthcare Address [address] [place] [address] Care Team Providers Care Robotics Testing Technician Name Role Phone Pcp, No Primary Care Provider Unavailabl e Encounter Details Date Type Department Care Team (Late st Contact Info) Description 06/20/2025 7:50 AM EDT Ancillary Procedure [facility] [address] [place] [address] Social History Tobacco Use Types [...] Description 12/23/2025 10:00 AM EDT Office Visit [facility] [address] [place] [address] Radha Zaidi MD [address] [facility] [address] [place] [address] documented as of this encounter Procedures Procedure Name Priority Date/Time Associated Diagnosis Comments OCT, OPTIC NERVE - OU - BOTH EYES Routine 06/20/2025 1:57 PM EDT IIH (idiopathic intracranial hypertension) documented in this encounter Results * OCT, Optic Nerve - OU - Both Eyes (06/20/2025 1:57 PM EDT) Anatomical Region Laterality Modality Head Optical Coherenc e Tomography Narrative 06/20/2025 1:57 PM EDT Right Eye Images reviewed and comparison made to baseline, Images reviewed. To assess optic nerve function and for use in future follow-up. Reliability: good and adequate. Left Eye Images reviewed and comparison made to baseline, Images reviewed. To assess optic nerve function and for use in future follow-up. Reliability: good and adequate. Notes Right eye (OD) - average RNFL measures 106 microns superior borders were elevated Left eye (OS) - average RNFL measures 106 microns superior and nasal borders were elevated Both eyes (OU) ganglion cell analysis is intact us Radha Zaidi MD OPHTH TOMOGRAPHY Final [...] documented as of this encounter Care Teams Robotics Testing Technician Relationship Specialty Start Date End Date Pcp, [place] [address] PCP - General Family Medicine 01/18/25 documented as of this encounter
--- OUTSIDE RECORDS SUMMARY | 2025-06-20 10:15 | XMS_ITS | Encounter Summary ---
Author Organization Healthcare Address [address] [address] Care Team Providers Care Internal Sales Name Role Phone Pcp, No Primary Care Provider Unavailabl e Reason for Referral * Imaging (Routine) - Closed Specialty Diagnoses / Procedures Referred By Nima robles Referred To Contact Radiology Diagnoses IIH (idiopathic intracranial hypertension) Procedures IR Lumbar Puncture Consult to Interventional Radiology Radha Zaidi MD [address] [address] Phone: tel: fax: Referral ID Status Reason Start Date Expiration Date Visits Re quested Visits Authorized [id number] Closed 06/20/2025 12/20/2026 1 1 Encounter Details Date Type Department Care Team (Late st Contact Info) Description 06/20/2025 10:15 AM EDT Office Visit [facility] [address] [place] [address] Radha Zaidi MD [address] [facility] [place] [address] IIH (idiopathic intracranial hypertension) (Primary Dx); Primary hypertension; Elevated optic disc of both eyes Social History Tobacco Use Types Packs/Day Years Used Date Smoking Tobacco: Every Day Cigarettes 1 25.8 Started: 1999 Passive Smoke Exposure: Past Smokeless Tobacco: Former Snuff, Chew Quit: 1999 Sex and Gender Information Value Date Recorded Sex Assigned at Not on file Legal Sex Male 8:53 PM EDT Gender Identity Not on file Sexual Orientation Not on file documented as of this encounter Miscellaneous Notes * Progress Notes - Radha Zaidi MD - 06/20/2025 10:15 AM EDT Chief complaint: Rule out idiopathic intracranial hypertension History of present illness Patient ID: Adam Enriquez is a 39 y.o. male returning to Neuro-Ophthalmology for evaluation of idiopathic intracranial hypertension. He is accompanied to the visit by his . Last seen in January/2025. HE presented with worse headache of his life. Since January 13 2025 developed severe headache, Tuesday morning could not see light. Vision was ok. No pulsatile tinnitus. No diplopia. Went to [facility]. CT head : Was concerning for idiopathic intracranial htn. BMI 46 164kg Was treated 2 migraine cocktails and pain was down to 4/10 (prevoiusly 8). Still left with some lingering headache. No neck stiffness, no fever, VS: 146/86, 67, 97%RA, Afebrile BP stays elevated. Not being treated. Have a BP machine at home and has been checking. Suggested to see Neuro-Ophthalmology soon. No eye problems. No glasses, no eye surgeries. Always overweight. Weighs 360 lbs, ht 6 feet 1 inch. Reports Neck pain. Headache on and off - 10 to 15 years. Usually would last for 1 day. Random episodes. Tylenol would help. Never had headache like this previously. Falls asleep while sitting. He snores. No DM, thyroid Eye exam only while in school. Fundus exam showed blurred nasal borders OU Completed the MRI head w/wo and MRV with contrast which showed Stenosis in the lateral transverse sinuses near the transverse sigmoid junction. Finding is highly suggestive of idiopathic intracranial hypertension. Empty sella concerning for intracranial hypertension. Suggested to quit smoking and sleep study to rule out obstructive sleep apnea, lose weight and see primary care for overall evaluation. Started propranolol in the interim. Interim history Propranolol has helped. Has few breakthrough headaches. Has seen PCP - started BP and allergy meds. No diabetes ELY eval pending No vision issues Past Medical History[1] Family medical history family history includes Diabetes in his mother; Heart disease in his father. Social history reports that he has been smoking cigarettes. He started smoking about 25 years ago. He has a 25.7 pack-year smoking history. He has been exposed to tobacco smoke. He quit smokeless tobacco use about 25 years ago. His smokeless tobacco use included snuff and chew. Smoking 1 PPD X 20 yeras Denies EtOH abuse or illicit substance use. Works on a cattle farm. Review of systems ROS Positive for: Eyes Negative for: Constitutional, Gastrointestinal, Neurological, Skin, Genitourinary, Musculoskeletal,HENT, Endocrine, Cardiovascular, Respiratory, Psychiatric, Allergic/Imm, Heme/Lymph Last edited by Estrella Robbins on 06/20/2025 10:05 AM. Review of systems: 14 point review of systems was negative except as documented above Allergies : Patient has no known allergies. Medications No current outpatient medications on file. (Ophthalmic Drugs) No current facility-administered medications for this visit. (Ophthalmic Drugs) Current Outpatient Medications (Other) Medication Sig cetirizine (ZyrTEC) 10 MG tablet Take 1 tablet by mouth 1 time each day. fluticasone (Flonase) 50 MCG/ACT nasal spray 2 sprays. losartan-hydroCHLOROthiazide (Hyzaar) 50-12.5 MG tablet 1 tablet. montelukast (Singulair) 10 MG tablet 1 tablet. propranolol (Inderal) 20 MG tablet Take 1 tablet by mouth daily. SUMAtriptan (Imitrex) 50 MG tablet 1 tablet. Ventolin HFA 108 (90 Base) MCG/ACT inhaler 2 puffs. No current facility-administered medications for this visit. (Other) Alert and oriented X 3, mood and affect normal Objective Base Eye Exam Visual Acuity (Snellen - Linear) Right Left Dist sc 20/20 -2 20/20 -3 Near ga J1 J2 Pupils Pupils APD Right PERRL None Left PERRL None Extraocular Movement Right Left Full, Ortho Full, Ortho Neuro/Psych Oriented x3: Yes Mood/Affect: Normal Dilation Both eyes: 1% Tropicamide, 2.5% Phenylephrine @ 1:01 PM Additional Tests Color Right Left Ishihara Stereo Fly: + Animals: 3/3 Circles: 5/9 Glare Testing Medium Right 1.65 Left 1.65 Slit Lamp and Fundus Exam External Exam Right Left External Normal Normal Slit Lamp Exam Right Left Lids/Lashes Normal for age Normal for age Conjunctiva/Sclera Normal Normal Cornea Clear and compact Clear and compact Anterior Chamber Deep and quiet Deep and quiet Iris Normal pupil size and shape Normal pupil size and shape Lens Clear Clear Vitreous Normal Normal Fundus Exam Right Left Disc No edema; nasal borders blurred no vascularization; good color (Kandice 78 d Lens) No edema; nasal borders are blurred, no vascularization; good color (Kandice 78 d Lens) C/D Ratio 0.3 0.3 Macula Normal reflex; without edema Normal reflex; without edema Vessels Perfused; no tortuosity or abnormality Perfused; no tortuosity or abnormality Periphery Attached; no retinal or choroidal lesions Attached; no retinal or choroidal lesions Refraction Manifest Refraction Sphere Cylinder [place] Dist [place] Right -0.50 +0.50 010 20/20 Left -0.25 +0.50 120 20/20 On sensory motor exam extraocular motility was full. Ductions and versions are normal. Patient was orthophoric for distance . Saccades and smooth pursuit were within normal limits. I personally reviewed notes from referring provider and gathered information about headache I personally reviewed imaging: MRI head with and without and MRV with contrast shows empty sella Stenosis in the lateral transverse sinuses near the transverse sigmoid junction. Finding is highly suggestive of idiopathic intracranial hypertension Automated Visual Field, Extended - OU - Both Eyes Right Eye Threshold was 24-2. Strategy was KYLE. Reliability was good. Foveal threshold was normal. Findings include non-specific defects. Left Eye Threshold was 24-2. Strategy was KYLE. Reliability was good. Foveal threshold was normal. Findings include non-specific defects. Notes OD MD of - 1.24 db OS MD of - 2.09 db OCT, Retina - OU - Both Eyes Right Eye Quality was good. Findings include normal observations. Left Eye Quality was good. Findings include normal observations. OCT, Optic Nerve - OU - Both Eyes Right Eye Images reviewed and comparison made [...] eyes (OU) ganglion cell analysis is intact No results found for this or any previous visit. Assessment and plan Assessment/Plan Problem List Items Addressed This Visit Eye/Vision problems Elevated optic disc of both eyes Other IIH (idiopathic intracranial hypertension) - Primary Relevant Orders OCT, Retina - OU - Both Eyes (Completed) OCT, Optic Nerve - OU - Both Eyes (Completed) Automated Visual Field, Extended - OU - Both Eyes (Completed) CBC and Differential PT/INR APTT Consult to Interventional Radiology CSF Panel Primary hypertension Relevant Medications losartan-hydroCHLOROthiazide (Hyzaar) 50-12.5 MG tablet propranolol (Inderal) 20 MG tablet Adam Enriquez is a 39 y.o. male presenting in Neuro-Ophthalmology for follow-up evaluation of idiopathic intracranial hypertension. He has been suffering from a severe headache since January 13, 2025 On neuro-ophthalmology exam visual acuity is 20/20 in each eye , color vision is normal in both theeyes, contrast sensitivity is normal in both the eyes ,stereopsis is good . There was no afferent pupillary defect. Extraocular movements were full. The patient was orthophoric for distance. Anteriorsegment exam was unremarkable in both the eyes . Fundus exam showed no active disc edema but nasal borders were blurred in both the eyes and no other retinal abnormalities . Visual marrero showed nonspecific findings in both the eyes but full marrero OU . Retinal nerve fiber analysis looked robust with increased thickness in the superior borders in boththe eyes. Stable from previous exam. Ganglion cell analysis was intact OU . Macular OCT showed no abnormalities . MRI head and MR venogram are also concerning for intracranial hypertension Definitely needs spinal tap. His body weight is concerning. Plan Continue Propranolol 20 mg daily as prophylaxis for headache while workup is being completed. Excedrin migraine previously made him jittery and he does not like it Use Tylenol/ibuprofen as abortive therapy Continue treatment for hypertension Complete evaluation for sleep apnea Plan for lumbar puncture. Quit smoking Work on Weight loss The patient will return for a follow-up in 6 months Head CTA was denied by insurance [1] Past Medical History: Diagnosis Date Hypertension documented in this encounter Plan of Treatment Upcoming Encounters Date Type Department Care Team (Late st Contact Info) Description 12/23/2025 10:00 AM EDT Office Visit [facility] [address] [place] [phone] Radha Zaidi MD [address] [place] [id number] documented as of this encounter Procedures Procedure Name Priority Date/Time Associated Diagnosis Comments OCT, RETINA - OU - BOTH EYES Routine 06/20/2025 1:57 PM EDT IIH (idiopathic intracranial hypertension) OCT, OPTIC NERVE - OU - BOTH EYES Routine 06/20/2025 1:57 PM EDT IIH (idiopathic intracranial hypertension) AUTOMATED VISUAL FIELD, EXTENDED - OU - BOTH EYES Routine 06/20/2025 1:55 PM EDT IIH (idiopathic intracranial hypertension) documented in this encounter Results * IR Lumbar Puncture (07/03/2025 8:35 AM EDT) Anatomical Region Laterality Modality Spine, L-spine X-Ray Angiograph y Impressions 07/08/2025 2:18 PM EDT Technically successful diagnostic lumbar puncture under fluoroscopic guidance. COMMUNICATION: Per this written report. The findings were discussed with the ordering provider. Preliminary report signed by Blanca Lanier on 07/03/2025 9:28 AM By electronically signing this report, I, the attending physician, attest that I have personally reviewed the images/data for the above examination(s) and agree with the final edited report. Drafted by Blanca Lanier on 07/03/2025 9:19 AM Final report signed by Shamir Lindquist on 07/08/2025 2:18 PM Narrative 07/08/2025 2:18 PM EDT Diagnostic Lumbar Puncture Under Fluoroscopic Guidance CLINICAL INDICATION: This is a 39 years old Male presenting with headaches, morbid obesity and concern for idiopathic intracranial hypertension. A diagnostic lumbar puncture under fluoroscopic guidance was requested. PRE-OP EVALUATION: The patient's preoperative neurological exam demonstrated the following findings: He is alert and oriented. DATE: 07/03/2025 8:24 AM COMPARISON: MR head reviewed from 05/22/25. TALLOW PUMPER: Blanca Lanier PA-C SECONDARY LOSS MITIGATION SPECIALIST: Wang, RT CONTRAST: 0 cc MEDICATIONS: 1% buffered Lidocaine (local) PROCEDURE TIME: 11 minutes FLUORO TIME: 0.8 minutes FLUORO DOSE: 81 mGy TECHNIQUE: The procedure was explained in its entirety to the patient by the radiology team prior to transport to the neuroangiography suite. This included a discussion of the risks, benefits, and alternatives to lumbar puncture. Risks discussed included nerve root injury, low-pressure headache, pain, bleeding, and infection. The patient gave both verbal and written consent to proceed. Timeout was done at the beginning the procedure. Strict hand hygiene protocol was observed. All personnel in the room were attired in surgical hat and mask. The operators were in surgical hat, mask, sterile gown, and sterile gloves. The patient was placed lateral on the fluoroscopy table. The access site was prepped and draped in the standard sterile fashion with iodine. The L3-4 interspace was identified on fluoroscopy. Lidocaine was infiltrated into the skin and soft tissue. A 20-gauge Touhy needle was advanced into the thecal sac. Spontaneous CSF flow was obtained and 16 cc of clear CSF were obtained and sent for testing. Opening pressure was 31 cm water and closing pressure was 19 cm water. The inner trocar of the needle was re-introduced, and the needle was removed. The patient tolerated the procedure without complication. FINDINGS: Technically successful diagnostic lumbar puncture at L3-4 with return of clear and colorless CSF. Elevated opening pressure of 31 cm water. Procedure Note Shamir Lindquist MD - 07/08/2025 Diagnostic Lumbar Puncture Under Fluoroscopic Guidance CLINICAL INDICATION: This is a 39 years old Male presenting withheadaches, morbid obesity and concern for idiopathic intracranialhypertension. A diagnostic lumbar puncture under fluoroscopic guidance wasrequested. PRE-OP EVALUATION: The patient's preoperative neurological examdemonstrated the following findings: He is alert and oriented. DATE: 07/03/2025 8:24 AM COMPARISON: MR head reviewed from 05/22/25. TALLOW PUMPER: Blanca Lanier PA-C SECONDARY LOSS MITIGATION SPECIALIST: RT Wang CONTRAST: 0 cc MEDICATIONS: 1% buffered Lidocaine (local) PROCEDURE TIME: 11 minutes FLUORO TIME: 0.8 minutes FLUORO DOSE: 81 mGy TECHNIQUE: The procedure was explained in its entirety to the patient bythe radiology team prior to transport to the neuroangiography suite. Thisincluded a discussion of the risks, benefits, and alternatives to lumbarpuncture. Risks discussed included nerve root injury, low-pressureheadache, pain, bleeding, and infection. The patient gave both verbal andwritten consent to proceed. Timeout was done at the beginning theprocedure. Strict hand hygiene protocol was observed. All personnel inthe room were attired in surgical hat and mask. The operators were insurgical hat, mask, sterile gown, and sterile gloves. The patient wasplaced lateral on the fluoroscopy table. The access site was prepped anddraped in the standard sterile fashion with iodine. The L3-4 interspacewas identified on fluoroscopy. Lidocaine was infiltrated into the skinand soft tissue. A 20-gauge Touhy needle was advanced into the thecalsac. Spontaneous CSF flow was obtained and 16 cc of clear CSF were obtained and sent for testing. Opening pressure was 31 cm water andclosing pressure was 19 cm water. The inner trocar of the needle wasre-introduced, and the needle was removed. The patient tolerated theprocedure without complication. FINDINGS: Technically successful diagnostic lumbar puncture at L3-4 with return ofclear and colorless CSF. Elevated opening pressure of 31 cm water. IMPRESSION: Technically successful diagnostic lumbar puncture under fluoroscopicguidance. COMMUNICATION: Per this written report. The findings were discussed withthe ordering provider. Preliminary report signed by Blanca Lanier on 07/03/2025 9:28 AM By electronically signing this report, I, the attending physician, attestthat I have personally reviewed the images/data for the aboveexamination(s) and agree with the final edited report. Drafted by Blanca Lanier on 07/03/2025 9:19 AM Final report signed by Shamir Lindquist on 07/08/2025 2:18 PM us Radha Zaidi MD IMG IR PROCEDURES Final Resu lt * APTT (06/24/2025 1:09 PM EDT) aPTT 26 25 - 35 sec 06/24/2025 3:04 PM EDT [facility] Blood Venous blood specimen / Unknown Venipuncture / Unknown 06/24/2025 1:09 PM EDT 06/24/2025 1:09 PM EDT Radha Zaidi MD LAB BLOOD ORDERABLES Final R esult Performing Organization Address City/[facility]/ZIP Co de Phone Number [facility] [address] [place] [address] * PT/INR (06/24/2025 1:09 PM EDT) Prothrombin Time 12.7 12.0 - 14.3 sec 06/24/2025 3:04 PM EDT [facility] INR 0.9 0.9 - 1.1 06/24/2025 3:[address] [facility] Blood Venous blood specimen / Unknown Venipuncture / Unknown 06/24/2025 1:09 PM EDT 06/24/2025 1:09 PM EDT Narrative [facility] - 06/24/2025 3:04 PM EDT OPTIMAL INR RANGES FOR PATIENT ON ORAL ANTICOAGULANT THERAPY Prevention of venous thromboembolism INR 2.0 to 3.0 In patients with heart disease: Atrial fibrillation INR 2.0 to 3.0 Valvular heart disease INR 2.0 to 3.0 Tissue heart valves INR 2.0 to 3.0 Mechanical prosthetic valves INR 2.5 to 3.5 Prevention of recurrent VA INR 2.5 to 3.5 Radha Zaidi MD LAB BLOOD ORDERABLES Final R esult Performing Organization Address City/[facility] Co de Phone Number [facility] [address] [place] [address] * CBC and Differential (06/24/2025 1:09 PM EDT) WBC Count 9.39 3.70 - 10.30 10*3/uL LAB HEMATOLOGY METHOD 06/24/2025 2:40 PM EDT [facility] RBC Count 4.67 4.60 - 6.10 10*6/uL LAB HEMATOLOGY METHOD 06/24/2025 2:40 PM EDT [facility] HGB 14.8 13.7 - 17.5 g/dL LAB HEMATOLOGY METHOD 06/24/2025 2:40 PM EDT [facility] HCT 45.5 40.0 - 51.0 % LAB HEMATOLOGY METHOD 06/24/2025 2:40 PM EDT [facility] Platelet Count 336 155 - 369 10*3/uL LAB HEMATOLOGY METHOD 06/24/2025 2:40 PM EDT [facility] MCV 97 79 - 98 fL LAB HEMATOLOGY METHOD 06/24/2025 2:40 PM EDT [facility] MCH 31.7 26.0 - 32.0 pg LAB HEMATOLOGY METHOD 06/24/2025 2:40 PM EDT [facility] MCHC 32.5 30.7 - 35.5 g/dL LAB HEMATOLOGY METHOD 06/24/2025 2:40 PM EDT [facility] RDW 12.8 11.5 - 14.5 % LAB HEMATOLOGY METHOD 06/24/2025 2:40 PM EDT [facility] MPV 9.3 8.8 - 12.5 fL LAB HEMATOLOGY METHOD 06/24/2025 2:40 PM EDT [facility] nRBC 0.0 <=0.0 per 100 WBCs LAB HEMATOLOGY METHOD 06/24/2025 2:40 PM EDT [facility] Differential Type Automated LAB HEMATOLOGY METHOD 06/24/2025 2:40 PM EDT [facility] Neutrophils % 58 % LAB HEMATOLOGY METHOD 06/24/2025 2:40 PM EDT [facility] Lymphocytes % 31 % LAB HEMATOLOGY METHOD 06/24/2025 2:40 PM EDT [facility] Monocytes % 5 % LAB HEMATOLOGY METHOD 06/24/2025 2:40 PM EDT [facility] Eosinophils % 5 % LAB HEMATOLOGY METHOD 06/24/2025 2:40 PM EDT [facility] Basophils % 1 % LAB HEMATOLOGY METHOD 06/24/2025 2:40 PM EDT [facility] Immature Granulocytes % 0 % LAB HEMATOLOGY METHOD 06/24/2025 2:40 PM EDT [facility] Neutrophils Absolute 5.38 1.60 - 6.10 10*3/uL LAB HEMATOLOGY METHOD 06/24/2025 2:40 PM EDT [facility] Lymphocytes Absolute 2.91 1.20 - 3.90 10*3/uL LAB HEMATOLOGY METHOD 06/24/2025 2:40 PM EDT [facility] Monocytes Absolute 0.49 0.30 - 0.90 10*3/uL LAB HEMATOLOGY METHOD 06/24/2025 2:40 PM EDT [facility] Eosinophils Absolute 0.50 0.00 - 0.50 10*3/uL LAB HEMATOLOGY METHOD 06/24/2025 2:40 PM EDT [facility] Basophils Absolute 0.07 0.00 - 0.10 10*3/uL LAB HEMATOLOGY METHOD 06/24/2025 2:40 PM EDT [facility] Immature Granulocytes Absolute 0.04 0.00 - 0.06 10*3/uL LAB HEMATOLOGY METHOD 06/24/2025 2:40 PM EDT [facility] Blood Venous blood specimen / Unknown Venipuncture / Unknown 06/24/2025 1:09 PM EDT 06/24/2025 1:09 PM EDT Narrative [facility] - 06/24/2025 2:40 PM EDT Therapeutic decision making should be based on absolute values, rather than percentages. Result [facility] Radha Zaidi MD LAB BLOOD ORDERABLES Final R esult [facility] [address] [place] [address] * OCT, Retina - OU - Both Eyes (06/20/2025 1:57 PM EDT) Anatomical Region Laterality Modality Head Optical Coherenc e Tomography Narrative 06/20/2025 1:57 PM EDT Right Eye Quality was good. Findings include normal observations. Left Eye Quality was good. Findings include normal observations. Result [facility] Radha Zaidi MD OPHTH TOMOGRAPHY Final Resul t * OCT, Optic Nerve - OU - [...] Zaidi MD OPHTH TOMOGRAPHY Final Resul t * Automated Visual Field, Extended - OU [...] db OS MD of - 2.09 db Radha Zaidi MD OPH VISUAL FIELD Final Res ult documented in this encounter Visit Diagnoses Diagnosis IIH (idiopathic intracranial hypertension)- Primary Benign intracranial hypertension Primary hypertension Unspecified essential hypertension Elevated optic disc of both eyes Morbid obesity (CMS/HCC)- Primary Morbid obesity IIH (idiopathic intracranial hypertension) Benign intracranial hypertension documented in this encounter Additional Health Concerns Assessment Noted Time A fall risk assessment has been complete d for the patient 06/20/2025 10:07 AM EDT A Body Mass Index follow-up plan has been documented for the patient 01/18/2025 3:07 PM EDT documented as of this encounter Care Teams Internal Sales Relationship Specialty Start [place] [address] PCP - General Family Medicine 01/18/25 documented as of this encounter
--- OUTSIDE RECORDS SUMMARY | 2025-07-03 06:30 | XMS_ITS | Encounter Summary ---
Author Organization Healthcare Address [address] [place] [address] Care Team Providers Care Channel Layer Name Role Phone Pcp, No Primary Care Provider Unavailabl e Reason for Referral * Imaging (Routine) - Closed Specialty Diagnoses / Procedures Referred By Contac t Referred To Contact Radiology Diagnoses IIH (idiopathic intracranial hypertension) Procedures IR Lumbar Puncture Consult to Interventional Radiology Radha Zaidi MD [address] [address] Phone: tel: fax: Referral ID Status Reason Start Date Expiration Date Visits Re quested Visits Authorized [id number] Closed 06/20/2025 12/20/2026 1 1 Reason for Visit * Imaging (Routine) - Closed Specialty Diagnoses / Procedures Referred By Contac t Referred To Contact Radiology Diagnoses IIH (idiopathic intracranial hypertension) Procedures IR Lumbar Puncture Consult to Interventional Radiology Radha Zaidi MD [address] [address] Phone: tel: fax: Referral ID Status Reason Start Date Expiration Date Visits Re quested Visits Authorized [id number] Closed 06/20/2025 12/20/2026 1 1 Encounter Details Date Type Department Care Team (Latest Contact Info) Description 07/03/2025 6:30 AM EDT - 07/03/2025 11:59 PM EDT Hospital Encounter P[facility] A Interventional Radiology [address] [place] [id number] Ankush Pablo, RN MICU 9-T1 AND T2 Morbid obesity (CMS/HCC) (Primary Dx); IIH (idiopathic intracranial hypertension) Discharge Disposition: Home or Self Care Social History Tobacco Use Types Packs/Day Years Used Date Smoking Tobacco: Every Day Cigarettes 1 25.8 Started: 1999 Passive Smoke Exposure: Past Smokeless Tobacco: Former Snuff, Chew Quit: 1999 Sex and Gender Information Value Date Recorded Sex Assigned at Not on file Legal Sex Male 8:53 PM EDT Gender Identity Not on file Sexual Orientation Not on file documented as of this encounter Last Filed Vital Signs Vital Sign Reading Time Taken Comments Blood Pressure 105/68 07/03/2025 9:09 AM EDT Pulse 71 07/03/2025 9:09 AM EDT Temperature 36.7 C (98 F) 07/03/2025 6:43 AM EDT Respiratory Rate 16 07/03/2025 9:09 AM EDT Oxygen Saturation 93% 07/03/2025 9:09 AM EDT Inhaled Oxygen Concentration - - Weight 169 kg (372 lb 5.7 oz) 07/03/2025 6:43 AM EDT Height 188 cm (6' 2 ) 07/03/2025 6:43 AM EDT Body Mass Index 47.81 07/03/2025 6:43 AM EDT documented in this encounter Discharge Instructions * Discharge Instructions* Ankush Pablo, RN - 07/03/2025 8:54 AM EDT Post Procedure Lumbar Puncture -Recovery Bedrest for 1 hr. -Must have a vacuum truck driver and should not drive or operate heavy equipment for 24 hrs post-procedure. -Patient will be discharged from hospital if no problem occurs. -Patient should remain upright or in a semi-reclining position the remainder of the day unless a headache occurs. -Activity should be limited until the next morning. -Diet allowed as tolerated -Drink lots of fluid. Water is best, but caffeine may help if headache occurs. -Acetaminophen (Tylenol) can be taken for pain or headaches. -Headaches, nausea, vomiting, neck stiffness, numbness and backache are common after procedure. -Avoid phenothiazines. -If severe headache persists longer than 24 hours, you have a fever greater than 100.6 degrees Fahrenheit, you have trouble thinking clearly, you have bleeding or discharge from the puncture site, goto the nearest emergency room. [facility] Clinic location and phone number: [facility] Department of Neurosurgery [address], First floor, [address], [address] [place] [address] When to seek emergency help: ? Please go to the nearest Emergency Room or dial 911 if: You have heavy bleeding from the procedure site. You need emergency medical help for any reason. When to call the [facility]: Call if you have questions or concerns about the Neurology Interventional Radiology procedure. How to call the [facility] Clinic: Tuesday-Tuesday, 8 a.m.-4:30 p.m., call the [facility] Clinic at [phone]. After hours, weekends, and holidays, call [phone]. Ask for the Neurosurgery or [facility] Resident oncall. documented in this encounter Medications at Time of Discharge cetirizine (ZyrTEC) 10 MG tablet Take 1 tablet by mouth 1 time each day. 06/07/2025 fluticasone (Flonase) 50 MCG/ACT nasal spray 2 sprays. 04/14/2025 losartan-hydroCHL OROthiazide (Hyzaar) 50-12.5 MG tablet 1 tablet. 03/20/2025 montelukast (Singulair) 10 MG tablet 1 tablet. 02/17/2025 propranolol (Inderal) 20 MG tablet Take 1 tablet by mouth daily. 30 tablet 11 06/20/2025 06/15/2026 SUMAtriptan (Imitrex) 50 MG tablet 1 tablet. 03/21/2025 Ventolin HFA 108 (90 Base) MCG/ACT inhaler 2 puffs. 06/14/2025 documented as of this encounter Miscellaneous Notes * Beatrice Garcia - Ankush Pablo, RN - 07/03/2025 8:53 AM EDT Images from the original note were not included. [id number] Headache After Spinal Tap (No Patch) Spinal fluid fills the space around the brain and spinal cord. This fluid acts as a cushion. Duringa spinal tap (lumbar puncture) procedure, a needle is passed through the skin and the membrane around the spinal cord in the lower back. This allows the doctor to remove a small sample of spinal fluid. This fluid provides important information about the health of your brain and spinal cord. Normally, as the needle is removed, the puncture hole seals off and no more fluid comes out. But sometimes the hole does not seal correctly and spinal fluid leaks into the nearby tissues. If you lose too much spinal fluid from a leak at the puncture site, the spinal fluid pressure goes down and a headache occurs. This headache may be mild or severe. The pain is often worse when you sit or stand and gets better or goes away when you lie down. There may also be dizziness, nausea, and blurred vision. The headache often goes away in 24 hours. No treatment is needed unless the headacheis very severe or lasts longer than 24 hours. You may need a bloodpatch if the headache does not get better after 24 hours. Home care ? Once you get home, rest lying down for 12 hours. ? Try not to sit or stand for the first 12 hours. It's OK to get up to eat and go to the bathroom for short amounts of time. ? Drink extra fluids for the next 24 hours. On a normal day, healthy men should have about 125 ounces (3.7 liters) of total water, from all drinks and food per day. Healthy women should take in about91 ounces (2.7 liters) of total water, from all drinks and food per day. ? Caffeinated drinks can help this type of headache. Unless told otherwise, you may have coffee or another caffeinated drink. ? If you were given medicine for nausea, take it as directed. Follow-up care Follow up with your healthcare provider, or as advised. When to get medical advice Call your healthcare provider right away if any of these occur: ? Headache remains severe for more than a few hours after the procedure ? Headache gets worse with sitting or standing ? Vomiting repeatedly (unable to keep liquids down) ? Numbness or tingling of the legs ? Unable to pass urine ? Bleeding or pain at the injection site ? Confusion or trouble thinking ? Fever of 100.4??F (38??C) or above, or as directed by your provider Last Reviewed Date: 2025 00:00:00 ?? [id number] [employer]. All rights reserved. This information is not intended as a substitute for professional medical care. Always follow your healthcare professional's instructions. * Beatrice Garcia - Ankush Pablo RN - 07/03/2025 8:53 AM EDT Images from the original note were not included. [id number] Having a Spinal Tap (Lumbar Puncture) A spinal tap (lumbar puncture) may be used to help diagnose certain problems in your brain or spinal cord. Prepare for your test as instructed. You may be asked to stop taking aspirin, nonsteroidal anti-inflammatory drugs (NSAIDs), or blood thinners a few days before your test. From start to finish, your spinal tap will take about 30 to 60 minutes. The test may be done in a medical office. Or it may be done in the emergency room or the hospital. Sometimes the test is done in a radiology office with X-ray guidance or with ultrasound imaging. Your healthcare provider may screen you for bleedingdisorders. They may also order a head or spine CT scan and an MRI before the test. This is done to be sure that there is no increased risk for you in having a spinal tap done. During the test You will lie on your side with your knees drawn into your chest. (This is called the position.) Or you may be asked to sit bent forward, with your chin down. First, your low back will be wiped with a special disinfectant. Then your skin will be numbed with a medicine (local anesthetic). The provider will insert a sterile spinal needle through the skin of your lower back until it reaches the sac that contains the cerebrospinal fluid (CSF). You may feel some pain or pressure when this happens. It is important to stay still during the test. Some spinal fluid will be taken out through the needle. The needle is then removed. Finally, a small bandage is placed over the skin puncture site. You may be asked to lie still for a short time before you leave. After the test ? When you?re able to leave, have an adult family member or friend drive you home. ? When you get home, rest lying down for a certain period of time as directed by your provider. ? If you get a headache, lying flat and drinking plenty of fluids may help relieve it. Often the headache is more painful when you stand. It gets better over time. You may also want to take an [id number]-[id number] pain reliever as advised. But don't take aspirin. Caffeine drinks may help relieve a headache after a spinal tap. These include soda, coffee, or tea. A headache may also occur with an upsetstomach (nausea), vomiting, or dizziness. ? The day after your spinal tap, you can remove your bandage. ? Your provider will tell you when your test results are ready. Call your healthcare provider if you have: ? A severe headache or a headache that lasts 2 or more days ? Double vision ? Pain in your back that doesn't go away ? Tingling in your groin or legs ? Fever ? Change in bowel or urination functions ? New symptoms or symptoms get worse Last Reviewed Date: 2023 00:00:00 ?? [id number] [employer]. All rights reserved. This information is not intended as a substitute for professional medical care. Always follow your healthcare professional's instructions. * Post-Procedure Note - Blanca Lanier PA - 07/03/2025 8:00 AM EDT Vascular and Interventional Radiology Brief Postprocedure Note Attending: Yolande Eeg Technologist: Wang Pre-operative Diagnosis: headaches, suspected IIH Post-operative Diagnosis: same Type of Anesthesia: Local Description of Findings: Clear CSF OP 31 CP 19 Technical/Surgical Procedures Used: Image-guided L3-4 LUMBAR PUNCTURE 16 ml CSF removed 15 cm spinal needle Specimen Obtained: Yes, csf Complications: None Estimated Blood Loss: none Procedure Events Event Event Time See detailed result report with images in PACS. The patient tolerated the procedure well without incident or complication and is in stable condition. * H&P - Blanca Lanier PA - 07/03/2025 8:00 AM EDT Images from the original note were not included. Subjective Chief complaint Headaches, possible IIH History Of Present Illness Adam Enriquez is a 39 y.o. male presenting with morbid obesity, headaches and concern for IIH. Headimaging showed findings of possible elevated intracranial pressure. Denies any significant vision changes. Has sound of water swishing around in his left ear. Has seen PCP in the past without relief.He was referred for an image-guided LUMBAR PUNCTURE. He is not on blood thinners. Denies back surgery. Has history of bulging disc in back. Medical/Surgical/Social/Family History Past Medical History[1] Surgical History[2] Social History[3] Family History[4] Travel History Relevant International Travel History: Travel Screening Question Response Have you been in contact with someone who was sick? No / Unsure Do you have any of the following new or worsening symptoms? None of these Have you traveled internationally or domestically in the last month? No Travel History Travel since 06/02/25 No documented travel since 06/02/25 Relevant Domestic Travel History: Immunizations Not reviewed Allergies Patient has no known allergies. Medications Current Medications[5] Objective Review of Systems As noted in HPI Physical Exam Constitutional: General: He is not in acute distress. Appearance: He is obese. He is not ill-appearing. HENT: Head: Normocephalic and atraumatic. Cardiovascular: Rate and Rhythm: Normal rate and regular rhythm. Pulmonary: Effort: Pulmonary effort is normal. No respiratory distress. Skin: General: Skin is dry. Neurological: Mental Status: He is alert and oriented to person, place, and time. Psychiatric: Mood and Affect: Mood normal. Behavior: Behavior normal. Last Recorded Vitals There were no vitals taken for this visit. 123/102, P 70, RR 11, O2 94 Results Review I have reviewed the latest lab and imaging results. Lab Results Component Value Date WBC 9.39 06/24/2025 HGB 14.8 06/24/2025 HCT 45.5 06/24/2025 MCV 97 06/24/2025 PLT 336 06/24/2025 Lab Results Component Value Date INR 0.9 06/24/2025 MR HEAD W AND WO IV CONTRAST authorized by: Radha Zaidi MD Study Result Narrative & Impression CLINICAL INDICATION: IIH TECHNIQUE: Multiplanar multiecho sequences were performed through the brain utilizing T1 and T2 weighting, as well as either axial susceptibility weighted or gradient echo sequences, and axial diffusion weighted images. Imaging was performed with and without contrast administration: 15.9 mL of Gadavist. COMPARISON: None. FINDINGS: Diagnostic Quality: Motion Degraded. The ventricles and sulci are normal in size. The sella is enlarged and predominantly fluid filled. There are no definite focal parenchymal lesions or masses. No abnormal intracranial enhancement is present. There is no abnormal parenchymal susceptibility artifact or restricted diffusion. Vascular Flow Voids: Normal. Paranasal Sinuses and Mastoid Air Cells: Small bilateral mastoid effusions. Orbits: No definite masses within the limitations of the study. Extracranial Findings: None. Craniocervical Junction and Skull Base: No tonsillar ectopia or mass is present. IMPRESSION: Significantly motion degraded study. Expanded sella, nonspecific but should be correlated with idiopathic intracranial hypertension. Otherwise unremarkable brain MRI. CRITICAL RESULT: No. COMMUNICATION: Per this written report. Drafted by Mirza Dc MD on 05/24/2025 8:02 AM Final report signed by Mirza Dc MD on 05/24/2025 8:21 AM Assessment & Plan IIH (idiopathic intracranial hypertension) Morbid obesity (CMS/HCC) Procedure and risks were discussed Consent obtained Proceed with image-guided LUMBAR PUNCTURE [1] Past Medical History: Diagnosis Date Hypertension [2] Past Surgical History: Procedure Laterality Date GALLBLADDER SURGERY [3] Social History Tobacco Use Smoking status: Every Day Current packs/day: 1.00 Average packs/day: 1 pack/day for 25.7 years (25.7 ttl pk-yrs) Types: Cigarettes Start date: 1999 Passive exposure: Past Smokeless tobacco: Former Types: Snuff, Chew Quit date: 1999 Vaping Use Vaping status: Never Used [4] Family History Problem Relation Name Age of Onset Diabetes Mother Heart disease Father [5] Current Outpatient Medications Medication Sig Dispense Refill cetirizine (ZyrTEC) 10 MG tablet Take 1 tablet by mouth 1 time each day. fluticasone (Flonase) 50 MCG/ACT nasal spray 2 sprays. losartan-hydroCHLOROthiazide (Hyzaar) 50-12.5 MG tablet 1 tablet. montelukast (Singulair) 10 MG tablet 1 tablet. propranolol (Inderal) 20 MG tablet Take 1 tablet by mouth daily. 30 tablet 11 SUMAtriptan (Imitrex) 50 MG tablet 1 tablet. Ventolin HFA 108 (90 Base) MCG/ACT inhaler 2 puffs. No current facility-administered medications for this encounter. documented in this encounter Plan of Treatment Upcoming Encounters Date Type Department Care Team (Late st Contact Info) Description 12/23/2025 10:00 AM EDT Office Visit [facility] [address] [place] [address] Radha Zaidi MD [address] [facility] [address] [place] [address] Pending Results Name Type Priority Associated Diagnoses Date /Time AFB Culture, Non Respiratory Source and Acid Fast Stain Microbiology Routine 07/03/2025 8:30 AM EDT Freeze and Hold Microbiology Routine 025 8:30 AM EDT documented as of this encounter Procedures Procedure Name Priority Date/Time Associated Diagnosis Comments MULTIPLE SCLEROSIS PROFILE PANEL (SO) Routine 07/03/2025 11:04 AM EDT OLIGOCLONAL BAND PROFILE (SO) Routine 07/03/2025 11:04 AM EDT MYELIN BASIC PROTEIN, CSF (SO) Routine 07/03/2025 11:04 AM EDT LLSPIN CSF Routine 07/03/2025 11:01 AM EDT LACTATE DEHYDROGENASE TOTAL, BODY FLUID (SO) Routine 07/03/2025 11:01 AM EDT KURT TINAJERO DNA BY PCR(CSF) Routine 07/03/2025 11:01 AM EDT TREPONEMA PALLIDUM (VDRL), CEREBROSPINAL FLUID WITH REFLEX TO TITER (SO) Routine 07/03/2025 11:01 AM EDT NETTA VIRUS (JCV) QUANTITATIVE REAL-TIME PCR (SO) Routine 07/03/2025 11:01 AM EDT ANGIOTENSIN CONVERTING ENZYME, CSF Routine 07/03/2025 11:01 AM EDT CSF, LLSPIN, PATHOLOGIST INTERPRETATION Routine 07/03/2025 11:01 AM EDT WEST NILE VIRUS ANTIBODIES, IGG AND IGM BY ADIN, CSF (SO) Routine 07/03/2025 11:01 AM EDT TOTAL PROTEIN, CSF Routine 07/03/2025 11 :01 AM EDT LACTIC ACID, CSF Routine 07/03/2025 11:0 1 AM EDT GLUCOSE, CSF Routine 07/03/2025 11:01 AM EDT IR LUMBAR PUNCTURE Routine 07/03/2025 8: 35 AM EDT IIH (idiopathic intracranial hypertension) CSF NOTIFICATION ORDER - PERFORMABLE Routine 07/03/2025 8:30 AM EDT IIH (idiopathic intracranial hypertension) FUNGAL CULTURE, CEREBROSPINAL FLUID (CSF) AND LIVIER INK Routine 07/03/2025 8:30 AM EDT MENINGITIS/ENCEPHALITI S PANEL BY PCR Routine 07/03/2025 8:30 AM EDT FREEZE AND HOLD Routine 07/03/2025 8:30 AM EDT AFB CULTURE, NON RESPIRATORY SOURCE AND ACID FAST STAIN Routine 07/03/2025 8:30 AM EDT CRYPTOCOCCAL ANTIGEN, CSF Routine 07/03/2025 8:30 AM EDT CEREBROSPINAL FLUID (CSF) CULTURE AND GRAM STAIN Routine 07/03/2025 8:30 AM EDT NON-GYNECOLOGIC CYTOLOGY Routine 07/03/2025 8:30 AM EDT IIH (idiopathic intracranial hypertension) OLIGOCLONAL BAND, BLOOD Routine 07/03/2025 7:36 AM EDT IIH (idiopathic intracranial hypertension) CSF PANEL Routine 07/03/2025 7:36 AM EDT IIH (idiopathic intracranial hypertension) documented in this encounter Results * OLIGOCLONAL BAND PROFILE (SO) (07/03/2025 11:04 AM EDT) IMMUNOGLOBULIN G CSF (OLIG) 3.8 0.0 - 6.0 mg/dL 07/06/2025 6:54 AM EDT [facility] ([employer]) Immunoglobulin G 968 768 - 1632 mg/dL 07/06/2025 6:54 AM EDT [facility] ([employer]) ALBUMIN BY NEPHELOMETRY (OLIG) 3545 3500 - 5200 mg/dL 07/06/2025 6:54 AM EDT [facility] ([employer]) ALBUMIN INDEX (OLIG) 7.3 0.0 - 9.0 ratio 07/06/2025 6:54 AM EDT [facility] ([employer]) CSF IGG SYNTHESIS RATE (OLIG) <0.0 <=8.0 mg/d 07/06/2025 6:54 AM EDT [facility] ([employer]) CSF OLIGOCLONAL BANDS (OLIG) Negative Negative 07/06/2025 6:54 AM EDT [facility] ([employer]) INTERPRETATION (OLIG) See Note 07/06/2025 6:54 AM EDT [facility] ([employer]) CSF IGG/ALBUMIN RATIO (OLIG) 0.15 0.09 - 0.25 ratio 07/06/2025 6:54 AM EDT [facility] ([employer]) IGG INDEX (OLIG) 0.54 0.28 - 0.66 ratio 07/06/2025 6:54 AM EDT [facility] ([facility]) OLIGOCLONAL BANDS NUMBER, CSF (OLIG) Matching 0 - 1 Bands 07/06/2025 6:54 AM EDT [facility] ([employer]) Albumin,CSF 26 0 - 35 mg/dL 07/06/2025 6:54 AM EDT [facility] ([employer]) Blood specimen (specimen) 07/03/2025 11:04 AM EDT 07/03/2025 11:04 AM EDT Narrative [facility]) - 07/06/2025 6:54 AM EDT Clinical Interpretation: Isoelectric focusing/immunofixation revealed matching or identical oligoclonal bands in the CSF and the serum. This result is consistent with a systemic, not an intrathecal immune reaction, and is considered to be a negative result for oligoclonal bands. Approximately 5 percent of patients with clinically definitive multiple sclerosis will have a negative result. INTERPRETIVE INFORMATION: Oligoclonal Band Profile To ensure accurate result interpretation, it is recommended that both CSF and serum specimens be collected on the same day. If specimens are not collected within this specified timeframe, it is advised to exercise caution when interpreting the results. Performed By: [facility] [address] [place] [address] Power Screwdriver Operator: Omar Dutton MD, PhD CLIA Number: [id number] Radha Zaidi MD LAB REF LAB BLOOD AND FLUID ORD Final Result [facility]) [address] [place] [address] * Myelin basic protein, CSF (07/03/2025 11:04 AM EDT) MYELIN BASIC PROTEIN 2.15 0.00 - 5.50 ng/mL 07/06/2025 3:47 PM EDT [facility] PR[facility] MANCILL[facility]) Cerebrospinal Fluid Lumbar puncture / Unknown Non-blood Collection / Unknown 07/03/2025 11:04 AM EDT 07/03/2025 11:04 AM EDT Narrative [facility] PRITESH MANCILLA) - 07/06/2025 3:47 PM EDT INTERPRETIVE INFORMATION: Myelin Basic Protein This test was developed and its performance characteristics determined by [facility]. It has not been cleared or approved by the [place] Food and Drug Administration. This test was performed in a CLIA certified laboratory and is intended for clinical purposes. Performed By: [facility] [address] [place] [address] Power Screwdriver Operator: Omar Dutton MD, PhD CLIA Number: [id number] us Radha Zaidi MD LAB BODY FLUIDS AND STOOLS O RDERABLES Final Result [facility] ([facility]) [address] [place] [address] * CSF, LLSPIN, pathologist interpretation (07/03/2025 11:01 AM EDT) Clinical Diagnosis, CSF, LLSPIN Idiopathic intracranial hypertension 07/04/2025 1:53 PM EDT [facility] Interpretation, CSF, LLSPIN No evidence of malignancy. Rare mononuclear cells. A resident was involved in the service. I attest I examined the relevant preparations for the specimens and confirmed the diagnosis or interpretation. 07/04/2025 1:53 PM EDT [facility] Pathologist Signature, CSF, LLSPIN Reviewed by: Neymar Carreon MD 07/04/2025 1:53 PM EDT [facility] LAB CP ASR DISCLAIMER Yes 07/04/2025 1:53 PM EDT [facility] Cerebrospinal Fluid Cerebrospinal fluid specimen / Unknown Non-blood Collection / Unknown 07/03/2025 11:01 AM EDT 07/03/2025 11:01 AM EDT Radha Zaidi MD LAB BODY FLUIDS AND STOOLS O RDERABLES Final Result [facility] [address] [place] [address] * NETTA Polyoma Virus Quantitative by PCR, CSF (07/03/2025 11:01 AM EDT) NETTA POLYOMA VIRUS DNA, QN,CSF Not Detected Not Detected copies/mL 07/04/2025 9:07 PM EDT [facility] ([employer]) Comment: Assay Range: 72 copies/mL to 1.00E+08 copies/mL The limit of quantitation (LOQ) is 72 copies/mL. NETTA virus DNA detected below the LOQ will be reported as Detected:<72 copies/mL. This test was developed and its performance characteristics determined by [facility]. It has not been cleared or approved by the U.S. Food and Drug Administration. Results should be used in conjunction with clinical findings, and should not form the sole basis for a diagnosis or treatment decision. Testing Performed at: [facility] [address] [place] [address] Membership Manager: Edwardo Guadalupe PhD [facility]SH[facility] ([facility]) CLIA # [id number] FLAG Interpretation: A = Abnormal, H = High, L = Low Cerebrospinal Fluid Cerebrospinal fluid specimen / Unknown Non-blood Collection / Unknown 07/03/2025 11:01 AM EDT 07/03/2025 11:01 AM EDT Narrative [facility] ([employer]) - 07/04/2025 9:07 PM EDT Release to patient in [facility]->Immediate us Radha Zaidi MD LAB BODY FLUIDS AND STOOLS O RDERABLES Final Result [email or web address]) * KURT TINAJERO DNA BY PCR(CSF) (SO) (07/03/2025 11:01 AM EDT) Kurt Tinajero PCR CSF Not Detected Not Detected IU/mL 07/05/2025 8:23 AM EDT [facility] ([employer]) Comment: Assay Range: 52 IU/mL to 1.69E+08 IU/mL The limit of quantitation (LOQ) is 52 IU/mL. EBV DNA detected below the LOQ will be reported as Detected:<52 IU/mL. This test was developed and its performance characteristics determined by [facility]. It has not been cleared or approved by the U.S. Food and Drug Administration. Results should be used in conjunction with clinical findings, and should not form the sole basis for a diagnosis or treatment decision. Testing Performed at: [facility] [address] [place] [address] Membership Manager: Edwardo Guadalupe, PhD ASHLEY (ABB) CLIA # [id number] FLAG Interpretation: A = Abnormal, H = High, L = Low Cerebrospinal Fluid Cerebrospinal fluid specimen / Unknown Non-blood Collection / Unknown 07/03/2025 11:01 AM EDT 07/03/2025 11:01 AM EDT Misty MANCILLA) - 07/05/2025 8:23 AM EDT Release to patient in [facility]->Immediate Radha Zaidi MD LAB BODY FLUIDS AND STOOLS O RDERABLES Final Result TIFFANIE (HERMINIA) * West Nile virus, CSF (07/03/2025 11:01 AM EDT) WEST NILE VIRUS AB,IGG,CSF 0.04 <=1.29 IV 07/06/2025 5:16 AM EDT [facility] ([facility]) WEST NILE VIRUS AB,IGM,CSF 0.00 <=0.89 IV 07/06/2025 5:16 AM EDT [facility] ([employer]) Cerebrospinal Fluid Cerebrospinal fluid specimen / Unknown Non-blood Collection / Unknown 07/03/2025 11:01 AM EDT 07/03/2025 11:01 AM EDT Narrative NAOMI JONAS ([place]) - 07/06/2025 5:16 AM EDT INTERPRETIVE INFORMATION: West Nile Virus Ab IgG by ADIN, CSF 1.29 IV or less ....... Negative: No significant level of West Nile virus IgG antibody detected. 1.30 - 1.49 IV ........ Equivocal: Questionable presence of West Nile virus IgG antibody detected. Repeat testing in 10-14 days may be helpful. 1.50 IV or greater .... Positive: Presence of IgG antibody to West Nile virus detected, suggestive of current or past infection. This test is intended to be used as a semi-quantitative means of detecting West Nile virus-specific IgG in CSF samples in which there is a clinical suspicion of West Nile Virus infection. This test should not be used solely for quantitative purposes, nor should the results be used without correlation to clinical history or other data. Because other members of the Flaviviridae family, such as Jarrell encephalitis virus, show extensive cross-reactivity with West Nile virus, serologic testing specific for these species should be considered. The detection of antibodies to West Nile virus in cerebrospinal fluid may indicate central nervous system infection. However, consideration must be given to possible contamination by blood or transfer of serum antibodies across the blood-brain barrier. This test was developed and its performance characteristics determined by [facility]. It has not been cleared or approved by the [place] Food and Drug Administration. This test was performed in a CLIA certified laboratory and is intended for clinical purposes. INTERPRETIVE INFORMATION: West Nile Virus Ab IgM by ADIN, CSF 0.89 IV or less ...... Negative - No significant level of West Nile virus IgM antibody detected. 0.90-1.10 IV ......... Equivocal - Questionable presence of West Nile virus IgM antibody detected. Repeat testing in 10-14 days may be helpful. 1.11 IV or greater ... Positive - Presence of IgM antibody to West Nile virus detected, suggestive of current or recent infection. This test is intended to be used as a semi-quantitative means of detecting West Nile virus-specific IgM in CSF samples in which there is a clinical suspicion of West Nile virus infection. This test should not be used solely for quantitative purposes, nor should the results be used without correlation to clinical history or other data. Because other members of the Flaviviridae family, such as Jarrell encephalitis virus, show extensive cross-reactivity with West Nile virus, serologic testing specific for these species should be considered. The detection of antibodies to West Nile virus in cerebrospinal fluid may indicate central nervous system infection. However, consideration must be given to possible contamination by blood or transfer of serum antibodies across the blood-brain barrier. This test was developed and its performance characteristics determined by [facility]. It has not been cleared or approved by the US Food and Drug Administration. This test was performed in a CLIA certified laboratory and is intended for clinical purposes. Performed By: [facility] [address] [place] [address] Power Screwdriver Operator: Omar Dutton MD, PhD CLIA Number: [id number] us Radha Zaidi MD LAB BLOOD ORDERABLES Final R esult [facility] (HERMIN[place]) [address] [place] [address] * Angiotensin Converting Enzyme, CSF (07/03/2025 11:01 AM EDT) ANGIOTENSIN CONVERTING ENZYME, CSF 1.3 0.0 - 2.5 U/L 07/05/2025 5:09 PM EDT [facility] ([facility]) Cerebrospinal Fluid Venous blood specimen / Unknown Non-blood Collection / Unknown 07/03/2025 11:01 AM EDT 07/03/2025 11:01 AM EDT Misty [facility]) - 07/05/2025 5:09 PM EDT This test was developed and its performance characteristics determined by [email or web address]. It has not been cleared or approved by the [place] Food and Drug Administration. This test was performed in a CLIA certified laboratory and is intended for clinical purposes. Performed By: [email or web address] [address] [place] [address] Power Screwdriver Operator: Omar Dutton MD, PhD CLIA Number: [id number] Radha Zaidi MD LAB BLOOD ORDERABLES Final R esult Performing Organization Address [facility] de Phone Number [facility]) [address] [place] [address] * VDRL CSF with Reflex to Titer (07/03/2025 11:01 AM EDT) Pathologist [facility] T.PALLIDUM (VDRL) CSF REFLEX Non Reactive Non Reactive 07/05/2025 4:34 PM EDT [facility] ([facility]) Cerebrospinal Fluid Cerebrospinal fluid specimen / Unknown Non-blood Collection / Unknown 07/03/2025 11:01 AM EDT 07/03/2025 11:01 AM EDT [facility]) - 07/05/2025 4:34 PM EDT Because the VDRL was Non Reactive, the VDRL titer was not performed. Performed By: [facility] [address] [place] [address] Power Screwdriver Operator: Omar Dutton MD, PhD CLIA Number: [id number] Radha Zaidi MD LAB BODY FLUIDS AND STOOLS O RDERABLES Final Result Performing Organization Address [facility] de Phone Number [facility]) [address] [place] [address] * Lactate Dehydrogenase Total, Body Fluid (SO) (07/03/2025 11:01 AM EDT) Lactate Dehydrogenase Total, Body Fluid 15 U/L 07/05/2025 6:56 PM EDT [facility] ([place]) LDH Fluid Source CSF 07/05/20 6:56 PM EDT [facility] ([facility]) Cerebrospinal Fluid Non-blood Collection / Unknown 07/03/2025 11:01 AM EDT 07/03/2025 11:01 AM EDT Narrative [facility] ([place]) - 07/05/2025 6:56 PM EDT INTERPRETIVE INFORMATION: Lactate Dehydrogenase Total, Body Fluid For information on body fluid reference ranges and/or interpretive guidance visit [email or web address]/ This test was developed and its performance characteristics determined by [facility]. It has not been cleared or approved by the US Food and Drug Administration. This test was performed in a CLIA certified laboratory and is intended for clinical purposes. Performed By: [facility] [address] [place] [id number] Power Screwdriver Operator: Omar Dutton MD, PhD CLIA Number: [id number] Radha Zaidi MD LAB REF LAB BLOOD AND FLUID ORD Final Result [facility] [address] [place] [address] * Protein, CSF (07/03/2025 11:01 AM EDT) Total Protein, CSF 40 15 - 45 mg/dL 07/03/2025 3:49 PM EDT [facility] Cerebrospinal Fluid Lumbar puncture / Unknown Non-blood Collection / Unknown 07/03/2025 11:01 AM EDT 07/03/2025 11:01 AM EDT Narrative [facility] - 07/03/2025 3:49 PM EDT Blood, when present in CSF, invalidates protein. Interpret results in the context of the patient's condition and other laboratory results. us Radha Zaidi MD LAB BODY FLUIDS AND STOOLS O RDERABLES Final Result Performing Organization Address City/[facility]/ZIP Co de Phone Number [facility] [address] [place] [address] * (ABNORMAL) Glucose, CSF (07/03/2025 11:01 AM EDT) Glucose, CSF 73(H) 41 - 70 mg/dL 07/03/2025 3:49 PM EDT [facility] Cerebrospinal Fluid Lumbar puncture / Unknown Non-blood Collection / Unknown 07/03/2025 11:01 AM EDT 07/03/2025 11:01 AM EDT Narrative [facility] - 07/03/2025 3:49 PM EDT CSF glucose values should be approximately 60 % of the plasma values and must always be compared with concurrently measured plasma values for adequate clinical interpretation. No reference ranges have been established for pediatric patients. us Radha Zaidi MD LAB BODY FLUIDS AND STOOLS O RDERABLES Final Result Performing Organization Address [facility] Co de Phone Number [facility] [address] [place] [address] * Lactic acid, CSF (07/03/2025 11:01 AM EDT) Lactate, CSF 1.5 1.1 - 2.4 mmol/L 07/03/2025 3:49 PM EDT [facility] Cerebrospinal Fluid Lumbar puncture / Unknown Non-blood Collection / Unknown 07/03/2025 11:01 AM EDT 07/03/2025 11:01 AM EDT Narrative [facility] - 07/03/2025 3:49 PM EDT CSF reference intervals are based on literature values and have not been verified at the [facility]. us Radha Zaidi MD LAB BODY FLUIDS AND STOOLS O RDERABLES Final Result Performing Organization Address [facility] Co de Phone Number [facility] [address] [place] [address] * LLSpin CSF (07/03/2025 11:01 AM EDT) Unspun Color, CSF Colorless Colorless LAB HEMATOLOGY METHOD 07/03/2025 5:04 PM EDT [facility] Unspun Clarity, CSF Clear Clear LAB HEMATOLOGY METHOD 07/03/2025 5:04 PM EDT [facility] Spun Color, CSF LAB HEMATOLOGY METHOD 07/03/2025 5:04 PM EDT [facility] Comment:Test Not Indicated Spun Clarity, CSF LAB HEMATOLOGY METHOD 07/03/2025 5:04 PM EDT [facility] Comment:Test Not Indicated Volume CSF 6.0 cc LAB HEMATOLOGY METHOD 07/03/2025 5:04 PM EDT [facility] Tube Number, CSF Tube 4 LAB HEMATOLOGY METHOD 07/03/2025 5:04 PM EDT [facility] Red Blood Cell Count, CSF 2 0 uL uL LAB HEMATOLOGY METHOD 07/03/2025 5:04 PM EDT [facility] Comment:Test performed by ma nual method. Total Nucleated Cell Count, CSF 1 0 - 5 L LAB HEMATOLOGY METHOD 07/03/2025 5:04 PM EDT [facility] Comment:Test performed by ma nual method. Blasts %, CSF LAB HEMATOLOGY METHOD 07/03/2025 5:04 PM EDT [facility] Neutrophils %, CSF LAB HEMATOLOGY METHOD 07/03/2025 5:04 PM EDT [facility] Comment:Too few to count Lymphocytes %, CSF LAB HEMATOLOGY METHOD 07/03/2025 5:04 PM EDT [facility] Comment:Too few to count Monocytes/Macro phages %, CSF LAB HEMATOLOGY METHOD 07/03/2025 5:04 PM EDT [facility] Comment:Too few to count Eosinophils %, CSF LAB HEMATOLOGY METHOD 07/03/2025 5:04 PM EDT [facility] Comment:Too few to count Basophils %, CSF LAB HEMATOLOGY METHOD 07/03/2025 5:04 PM EDT [facility] Comment:Too few to count Lymphoma Cells %, CSF LAB HEMATOLOGY METHOD 07/03/2025 5:04 PM EDT [facility] Other Cells %, CSF LAB HEMATOLOGY METHOD 07/03/2025 5:04 PM EDT [facility] Blasts Absolute, CSF LAB HEMATOLOGY METHOD 07/03/2025 5:04 PM EDT [facility] Neutrophils Absolute, CSF LAB HEMATOLOGY METHOD 07/03/2025 5:04 PM EDT [facility] Comment:Too few to count Lymphocytes Absolute, CSF LAB HEMATOLOGY METHOD 07/03/2025 5:04 PM EDT [facility] Comment:Too few to count Monocytes/Macro phages Absolute, CSF LAB HEMATOLOGY METHOD 07/03/2025 5:04 PM EDT [facility] Comment:Too few to count Eosinophils Absolute, CSF LAB HEMATOLOGY METHOD 07/03/2025 5:04 PM EDT [facility] Comment:Too few to count Basophils Absolute, CSF LAB HEMATOLOGY METHOD 07/03/2025 5:04 PM EDT [facility] Comment:Too few to count Other Cells Absolute, CSF LAB HEMATOLOGY METHOD 07/03/2025 5:04 PM EDT [facility] Lymphoma Cells Absolute, CSF LAB HEMATOLOGY METHOD 07/03/2025 5:04 PM EDT [facility] Cerebrospinal Fluid Cerebrospinal fluid specimen / Unknown Non-blood Collection / Unknown 07/03/2025 11:01 AM EDT 07/03/2025 11:01 AM EDT us Radha Zaidi MD LAB BODY FLUIDS AND STOOLS O RDERABLES Final Result [facility] [address] [place] [address] * IR Lumbar Puncture (07/03/2025 8:35 AM [...] AM COMPARISON: MR head reviewed from 05/22/25. BURIAL AGENT: Blanca Lanier PA-C SECONDARY INSTRUCTOR GROUND SERVICES: RT Wang CONTRAST: 0 cc MEDICATIONS: 1% [...] AM COMPARISON: MR head reviewed from 05/22/25. BURIAL AGENT: Blanca Lanier PA-C SECONDARY INSTRUCTOR GROUND SERVICES: RT Wang CONTRAST: 0 cc MEDICATIONS: 1% [...] IMG IR PROCEDURES Final Resu lt * Meningitis/Encephalitis Panel by PCR (07/03/2025 8:30 AM EDT) Escherichia coli K1 PCR Result Not Detected Not Detected 07/03/2025 2:01 PM EDT [facility] Haemophilus influenzae PCR Result Not Detected Not Detected 07/03/2025 2:01 PM EDT [facility] Listeria monocytogenes PCR Result Not Detected Not Detected 07/03/2025 2:01 PM EDT [facility] Neisseria meningitidis PCR Result Not Detected Not Detected 07/03/2025 2:01 PM EDT [facility] Streptococcus agalactiae PCR Result Not Detected Not Detected 07/03/2025 2:01 PM EDT [facility] Streptococcus pneumoniae PCR Result Not Detected Not Detected 07/03/2025 2:01 PM EDT [facility] Cytomegalovirus (CMV) PCR Result Not Detected Not Detected 07/03/2025 2:01 PM EDT [facility] Enterovirus (EV) PCR Result Not Detected Not Detected 07/03/2025 2:01 PM EDT [facility] Herpes Simplex Virus 1 (HSV-1) PCR Result Not Detected Not Detected 07/03/2025 2:01 PM EDT [facility] Herpes Simplex Virus 2 (HSV-2) PCR Result Not Detected Not Detected 07/03/2025 2:01 PM EDT [facility] Human Herpes Virus 6 (HHV-6) PCR Result Not Detected Presumptive Negative 07/03/2025 2:01 PM EDT [facility] Human Parechovirus (HPeC) PCR Result Not Detected Not Detected 07/03/2025 2:01 PM EDT [facility] Varicella Zoster Virus (VZV) PCR Result Not Detected Not Detected 07/03/2025 2:01 PM EDT [facility] Cryptococcus neoformans/gattii PCR Result Not Detected Not Detected 07/03/2025 2:01 PM EDT [facility] Cerebrospinal Fluid Lumbar puncture / Unknown Non-blood Collection / Unknown 07/03/2025 8:30 AM EDT 07/03/2025 10:58 AM EDT Narrative [facility] - 07/03/2025 2:01 PM EDT This specimen was tested for the following analytes: Eschericia coli K1, Haemophilus influenzae, Listeria monocytogenes, Neisseria meningitidis, Streptococcus agalactiae, Streptococcus pneumoniae, Cryptococcus neoformans/gattii, Cytomegalovirus, Enterovirus, Human Herpes virus 6, Herpes simplex virus 1, Herpes simplex virus 2, Human parechovirus, and Varicella zoster virus. ...NOTE: This test is not intended for use with CSF collected from indwelling medical devices (e.g. CSF Shunts). ...NOTE: The effect of antibiotic treatment on test performance has not been evaluated. us Radha Zaidi MD LAB MICROBIOLOGY - GENERAL O RDERABLES Final Result Performing Organization Address City/[facility]/ZIP Co de Phone Number [facility] [address] [place] [address] * Fungal Culture, Cerebrospinal Fluid (CSF) and Livier Ink (07/03/2025 8:30 AM EDT) Culture No Fungal Growth at 3 Weeks 07/25/2025 6:41 AM EDT [facility] Livier Ink No fungal elements seen 07/25/2025 6:41 AM EDT [facility] Cerebrospinal Fluid Lumbar puncture / Unknown Non-blood Collection / Unknown 07/03/2025 8:30 AM EDT 07/03/2025 10:58 AM EDT us Radha Zaidi MD LAB MICROBIOLOGY - GENERAL O RDERABLES Final Result [facility] [address] [place] [address] * Cryptococcal Antigen, CSF (07/03/2025 8:30 AM EDT) Cryptococcal Antigen Result (CSF) Negative Negative 07/03/2025 12:37 PM EDT [facility] Cerebrospinal Fluid Lumbar puncture / Unknown Non-blood Collection / Unknown 07/03/2025 8:30 AM EDT 07/03/2025 10:58 AM EDT Radha Zaidi MD LAB MICROBIOLOGY - GENERAL O RDERABLES Final Result Performing Organization Address City/[facility]/ZIP Co de Phone Number [facility] [address] [place] [address] * Cerebrospinal Fluid (CSF) Culture and Gram Stain (07/03/2025 8:30 AM EDT) Culture No growth at day 4 2024 12:16 PM EDT [facility] Gram Stain No polymorphonuclear leukocytes seen 07/06/2025 12:16 PM EDT [facility] Gram Stain No organisms seen 025 12:16 PM EDT [facility] Cerebrospinal Fluid Lumbar puncture / Unknown Non-blood Collection / Unknown 07/03/2025 8:30 AM EDT 07/03/2025 10:58 AM EDT us Radha Zaidi MD LAB MICROBIOLOGY - GENERAL O RDERABLES Final Result Performing Organization Address [facility] Co de Phone Number [facility] [address] [place] [address] * Non-Gynecologic Cytology (07/03/2025 8:30 AM EDT) Case Report Cytology Case: [id number] Authorizing Provider: Radha Zaidi MD Collected: 07/03/2025 0830 Ordering Location: [facility] Received: 07/03/2025 1459 Care Pathologist: Jolie Phelan MD Specimen: Lumbar Puncture, CEREBROSPINAL FLUID 07/04/2025 6:17 PM EDT [facility] Final Diagnosis A. CEREBROSPINAL FLUID - NO EVIDENCE OF MALIGNANCY, RARE MONONUCLEAR CELLS 07/04/2025 6:17 PM EDT [facility] at 1817 EDT Clinical History IIH 07/04/2025 6:17 PM EDT [facility] Previous Cancer No 07/04/2025 6:17 PM EDT [facility] Gross Description A. CEREBROSPINAL FLUID 0 ml's of clear fluid in tube #1, 2.0 ml's of clear fluid in tube #2, 0.5 ml's of clear fluid in tube #3 and 0.2 ml's of clear fluid in tube #4 all for thinprep 07/04/2025 6:17 PM EDT [facility] Cerebrospinal Fluid Lumbar puncture / Unknown Non-blood Collection / Unknown 07/03/2025 8:30 AM EDT 07/03/2025 2:59 PM EDT us Radha Zaidi MD LAB CYTOLOGY ORDERABLES Cynthia l Result Performing Organization Address City/[facility]/ZIP Co de Phone Number [facility] [address] [place] [address] * CSF Panel (07/03/2025 8:30 AM EDT) Cerebrospinal Fluid Lumbar puncture / Unknown Non-blood Collection / Unknown 07/03/2025 8:30 AM EDT 07/03/2025 10:58 AM EDT us Radha Zaidi MD LAB BODY FLUIDS AND STOOLS O RDERABLES Final Result [facility] [address] [place] [address] * Oligoclonal Band, Blood (07/03/2025 7:36 AM EDT) MS Profile Specimen Yes 07/03/2025 10:01 AM EDT [facility] Blood Venous blood specimen / Unknown Venipuncture / Unknown 07/03/2025 7:36 AM EDT 07/03/2025 8:53 AM EDT us Radha Zaidi MD LAB REF LAB BLOOD AND FLUID ORD Final Result Performing Organization Address City/[facility]/ZIP Co de Phone Number [facility] [address] [place] [address] documented in this encounter Visit Diagnoses Diagnosis Morbid obesity (CMS/HCC)- Primary Morbid obesity IIH (idiopathic intracranial hypertension) Benign intracranial hypertension documented in this encounter Administered Medications Inactive Administered Medications - up to 3 most recent administrations Medication Order MAR Action Action Date Dose Rate Site lidocaine 0.9% in sodium bicarbonate (buffered lidocaine) solution solution As needed, Starting on Tue07/03/25 at 0824, Until Tue07/03/25 at 0824, Routine, Intraprocedure Given 07/03/2025 8:24 AM EDT 10 mL documented in this encounter Additional Health Concerns Infection Onset Date Last Indicated Resolved Time Meningitis Rule-Out 07/03/2025 07/03/2025 07/03/20 12:16 PM EDT Assessment Noted Time A fall risk assessment has been complete d for the patient 06/20/2025 10:07 AM EDT A Body Mass Index follow-up plan has been documented for the patient 07/03/2025 8:54 AM EDT documented as of this encounter Care Teams Channel Layer Relationship Specialty Start Date End Date Pcp, [place] [address] PCP - General Family Medicine 01/18/25 documented as of this encounter
--- OUTSIDE RECORDS SUMMARY | 2025-07-27 18:52 | XMS_ITS | Encounter Summary ---
Author Organization Healthcare Address [address] [place] [address] Care Team Providers Care Glaucoma Specialist Name Role Phone Pcp, No Primary Care Provider Unavailabl e Encounter Details Date Type Department Care Team (Late st Contact Info) Description 05/24/2025 Results Follow-Up [facility] [address] [place] [address] Radha Zaidi MD [address] [address] Social History Tobacco Use Types Packs/Day Years [...] Description 12/23/2025 10:00 AM EDT Office Visit [facility] [address] [place] [address] Radha Zaidi MD [address] [address] documented as of this encounter Visit Diagnoses Not on filedocumented in this encounter Additional Health Concerns Infection Onset Date Last Indicated Resolved Time Meningitis Rule-Out 07/03/2025 07/03/2025 07/03/20 12:16 PM EDT Assessment Noted Time A fall risk assessment has been complete d for the patient 01/18/2025 12:37 PM EDT A Body Mass Index follow-up plan has been documented for the patient 01/18/2025 3:07 PM EDT documented as of this encounter Care Teams Glaucoma Specialist Relationship Specialty Start Date End Date Pcp, [place] [address] PCP - General Family Medicine 01/18/25 documented as of this encounter
--- OUTSIDE RECORDS SUMMARY | 2025-07-27 18:52 | XMS_ITS | Encounter Summary ---
Author Organization Healthcare Address [address] [place] [address] Care Team Providers Care Ledger Poster Name Role Phone Pcp, No Primary Care Provider Unavailabl e Encounter Details Date Type Department Care Team (Late st Contact Info) Description 06/24/2025 Results [facility] [address] [place] [address] Radha Zaidi MD [address] [address] Social History Tobacco Use Types [...] Description 12/23/2025 10:00 AM EDT Office Visit [facility] [address] [place] [phone] Radha Zaidi MD [address] [address] documented as of this encounter Visit Diagnoses Not on filedocumented in this encounter Additional Health Concerns Infection Onset Date Last Indicated Resolved Time Meningitis Rule-Out 07/03/2025 07/03/202507/03/20 25 12:16 PM EDT Assessment Noted Time A fall risk assessment has been complete d for the patient 06/20/2025 10:07 AM EDT A Body Mass Index follow-up plan has been documented for the patient 01/18/2025 3:07 PM EDT documented as of this encounter Care Teams Ledger Poster Relationship Specialty Start Date End Date Pcp, [place] [address] PCP - General Family Medicine 01/18/25 documented as of this encounter
--- OUTSIDE RECORDS SUMMARY | 2025-07-27 18:52 | XMS_ITS | Encounter Summary ---
Author Organization Healthcare Address [address] [place] [address] Care Team Providers Care Language Instructor Name Role Phone Pcp, No Primary Care Provider Unavailabl e Encounter Details Date Type Department Care Team (Latest Contact Info) Description 06/20/2025 Travel Social History Tobacco Use Types Packs/Day Years [...] Description 12/23/2025 10:00 AM EDT Office Visit [facility] [address] [place] [address] Radha Zaidi MD [address] [facility] [address] [place] [address] documented as of this encounter Visit Diagnoses Not on filedocumented in this encounter Additional Health Concerns Assessment Noted Time A fall risk assessment has been complete d for the patient 06/20/2025 10:07 AM EDT A Body Mass Index follow-up plan has been documented for the patient 01/18/2025 3:07 PM EDT documented as of this encounter Care Teams Language Instructor Relationship Specialty Start Date End Date Pcp, No [address] [place] [address] PCP - General Family Medicine 01/18/25 documented as of this encounter
--- OUTSIDE RECORDS SUMMARY | 2025-07-27 18:52 | XMS_ITS | Encounter Summary ---
Author Organization Healthcare Address [address] [place] [address] Care Team Providers Care Brim Buster Name Role Phone Pcp, No Primary Care Provider Unavailabl e Encounter Details Date Type Department Care Team (Latest Contact Info) Description 06/24/2025 Travel Social History Tobacco Use Types Packs/Day [...] Description 12/23/2025 10:00 AM EDT Office Visit [facility] [address] [place] [address] Radha Zaidi MD [address] [facility] [address] [place] [address] documented as of this encounter Visit Diagnoses Not on filedocumented in this encounter Additional Health Concerns Assessment Noted Time A fall risk assessment has been complete d for the patient 06/20/2025 10:07 AM EDT A Body Mass Index follow-up plan has been documented for the patient 01/18/2025 3:07 PM EDT documented as of this encounter Care Teams Brim Buster Relationship Specialty Start Date End Date Pcp, No [address] [place] [address] PCP - General Family Medicine 01/18/25 documented as of this encounter
--- OUTSIDE RECORDS SUMMARY | 2025-07-27 18:52 | XMS_ITS | Encounter Summary ---
Author Organization Healthcare Address [address] [place] [address] Care Team Providers Care Machine Buffer Name Role Phone Pcp, No Primary Care Provider Unavailabl e Encounter Details Date Type Department Care Team (Late st Contact Info) Description 07/05/2025 Orders Only [facility] [address] [place] [address] Radha Zaidi MD [address] [facility] [address] [place] [address] Social History Tobacco Use Types Packs/Day [...] Progress Notes - Radha Zaidi MD - 07/05/2025 10:28 AM EDT LP showed elevated intracranial pressure Prelim CSF results are ok Discussed with patient Will start diamox 500 mg daily X 1 week, then 500 mg bid Side effects discussed documented in this encounter Plan of Treatment Upcoming Encounters Date Type Department Care Team (Late st Contact Info) Description 12/23/2025 10:00 AM EDT Office Visit [facility] [address] [place] [phone] Radha Zaidi MD [address] [place] [address] documented as of this encounter Visit Diagnoses Not on filedocumented in this encounter Additional Health Concerns Assessment Noted Time A fall risk assessment has been complete d for the patient 06/20/2025 10:07 AM EDT A Body Mass Index follow-up plan has been documented for the patient 07/03/2025 8:54 AM EDT documented as of this encounter Care Teams Machine Buffer Relationship Specialty Start Date End Date Pcp, [place] [address] PCP - General Family Medicine 01/18/25 documented as of this encounter
--- OUTSIDE RECORDS SUMMARY | 2025-07-27 18:52 | XMS_ITS | Encounter Summary ---
Author Organization Healthcare Address [address] [place] [address] Care Team Providers Care Life Skills Specialist Name Role Phone Pcp, No Primary Care Provider Unavailabl e Encounter Details Date Type Department Care Team (Late st Contact Info) Description 07/05/2025 Results Follow-Up [facility] [address] [place] [address] Radha Zaidi MD [address] [address] Social History Tobacco Use Types [...] Description 12/23/2025 10:00 AM EDT Office Visit [facility] [address] [place] [address] Radha Zaidi MD [address] [address] documented as of this encounter Visit Diagnoses Not on filedocumented in this encounter Additional Health Concerns Assessment Noted Time A fall risk assessment has been complete d for the patient 06/20/2025 10:07 AM EDT A Body Mass Index follow-up plan has been documented for the patient 07/03/2025 8:54 AM EDT documented as of this encounter Care Teams Life Skills Specialist Relationship Specialty Start Date End Date Pcp, [place] [address] PCP - General Family Medicine 01/18/25 documented as of this encounter
--- OUTSIDE RECORDS SUMMARY | 2025-07-27 18:52 | XMS_ITS | Encounter Summary ---
Author Organization Healthcare Address [address] [place] [address] Care Team Providers Care Instructor Kindergarten Name Role Phone Pcp, No Primary Care Provider Unavailabl e Encounter Details Date Type Department Care Team (Late st Contact Info) Description 06/28/2025 Telephone [facility] Inter[facility] Radiology [address] [place] [address] Raudel Wood, RN Social History Tobacco Use Types Packs/Day Years [...] 12/23/2025 10:00 AM EDT Office Visit [facility] [address] [place] [phone] Radha Zaidi MD [address] [facility] [address] [place] [phone] documented as of this encounter Visit Diagnoses Not on filedocumented in this encounter Additional Health Concerns Assessment Noted Time A fall risk assessment has been complete d for the patient 06/20/2025 10:07 AM EDT A Body Mass Index follow-up plan has been documented for the patient 01/18/2025 3:07 PM EDT documented as of this encounter Care Teams Instructor Kindergarten Relationship Specialty Start Date End Date Pcp, No [address] [place] [address] PCP - General Family Medicine 01/18/25 documented as of this encounter
--- OUTSIDE RECORDS SUMMARY | 2025-07-27 18:52 | XMS_ITS | Clinical Summary ---
Author Organization Healthcare Address [address] [place] [address] Care Team Providers Care Greek Professor Name Role Phone Pcp, No Primary Care Provider Unavailabl e Allergies No known active allergies Medications Ventolin HFA 108 (90 Base) MCG/ACT inhaler 2 puffs. 06/14/2025 Act vijay cetirizine (ZyrTEC) 10 MG tablet Take 1 tablet by mouth 1 time each day. 06/07/2025 Active fluticasone (Flonase) 50 MCG/ACT nasal spray 2 sprays. 04/14/2025 Active losartan-hydroC HLOROthiazide (Hyzaar) 50-12.5 MG tablet 1 tablet. 03/20/2025 Active montelukast (Singulair) 10 MG tablet 1 tablet. 02/17/2025 Active SUMAtriptan (Imitrex) 50 MG tablet 1 tablet. 03/21/2025 Active propranolol (Inderal) 20 MG tablet Take 1 tablet by mouth daily. 30 tablet 11 06/20/2025 Active acetaZOLAMIDE (Diamox) 250 MG tablet Take 2 tablets by mouth 2 times a day. 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 [address] Radha Zaidi MD 07/05/2025 Orders Only [facility] [address] [place] [address] Radha Zaidi MD 07/03/2025 6:30 AM EDT - 07/03/2025 11:59 PM EDT Hospital Encounter [facility] [address] [place] [address] Ankush Pablo, RAISSA Morbid obesity (CMS/HCC) (Primary Dx); IIH (idiopathic intracranial hypertension) Discharge Disposition: Home or Self Care 07/03/2025 Travel 07/02/2025 Travel 06/28/2025 Telephone [facility] [address] [place] [address] Raudel Wood RN 06/24/2025 Results [facility]-Up [place] [facility] [address] [place] [address] Radha Zaidi MD 06/24/2025 Travel 06/20/2025 10:15 AM EDT Office Visit [facility] [address] [place] [address] Radha Zaidi MD IIH (idiopathic intracranial hypertension) (Primary Dx); Primary hypertension; Elevated optic disc of both eyes 06/20/2025 7:50 AM EDT Ancillary Procedure [facility] [address] [place] [address] 06/20/2025 7:45 AM EDT Ancillary Procedure [facility] [address] [place] [address] 06/20/2025 7:45 AM EDT Ancillary Procedure [facility] [address] [place] [address] 06/20/2025 Travel 06/10/2025 Refill [facility] [address] [place] [address] Radha Zaidi MD 05/24/2025 Results Follow-Up [facility] [address] [place] [address] Radha Zaidi MD 05/22/2025 3:43 PM EDT - 05/22/2025 11:59 PM EDT Hospital Encounter [facility] [address] [place] [address] IIH (idiopathic intracranial hypertension) Discharge Disposition: Home or Self Care 05/22/2025 Travel 05/21/2025 Travel 05/14/2025 Orders Only [facility] [address] [facility] [place] [address] Radha Zaidi MD 05/14/2025 Refill [facility] [address] [place] [address] Radha Zaidi MD 05/08/2025 Telephone [facility] [address] [place] [address] Radha Zaidi MD from Last 3 Months Family History Medical History Relation Name Comments Heart disease Father Diabetes Mother Relation Name Status Comments Father Mother Social History Tobacco Use Types Packs/Day Years Used Date Smoking Tobacco: Every Day Cigarettes 1 25.8 Started: 1999 Passive Smoke Exposure: Past Smokeless Tobacco: Former Snuff, Chew Quit: 1999 Tobacco Cessation:Ready to Q uit: Not Asked; Counseling Given: Not Answered Sex and Gender Information Value Date Recorded Sex Assigned at Not on file Legal Sex Male 8:53 PM EDT Gender Identity Not on file Sexual Orientation Not on file Last Filed Vital Signs Vital Sign Reading [...] Mass Index 47.81 07/03/2025 6:43 AM EDT Plan of Treatment Upcoming Encounters Date Type Department Care Team (Late st Contact Info) Description 12/23/2025 10:00 AM EDT Office Visit [facility] [address] [place] [address] Radha Zaidi MD [address] [place] [address] Health Maintenance Due Date Last Done Comments [facility]-Depression Screening 1986 [facility]-HIV Screening 1986 [facility]-/Child/Adol SDOH Screenings 1986 [facility]-Varicella Vaccines (1 of 2 - 13+ 2-dose series) 1999 [facility]- SDOH Screenings 2004 [facility]-Adult SDOH Screenings 2004 [facility]-Hepatitis B Vaccines (1 of 3 - 19+ 3-dose series) 2005 [facility]-Pneumococcal Vaccine: Pediatrics (0 to 5 Years) and At-Risk Patients (6 to 49 Years) (1 of 2 - PCV) 2005 HPV Vaccines (1 - 3-dose SCD M series) 2013 [facility]-DTaP,Tdap,and Td Vaccine s (2 - Td or Tdap) 06/02/2025 06/02/2015 GSL-SYTMX-10 Vaccine (1 - season) 2025 [facility]-Influenza Vaccine (#1) 2025 [facility]-Diabetes: Hemoglobin A1C 01/24/2026 01/24/2025 [facility]-Zoster Vaccines (1 of 2) 2036 [facility]-Hepatitis C Screening Completed 01/24/2025 [facility]-Obesity Intervention Completed 025, 01/18/2025 [facility]-HIB Vaccines Aged Out No longer e ligible based on patient's age to complete this topic [facility]-Hepatitis A Vaccines Aged Out No longer eligible based on patient's age to complete this topic [facility]-IPV Vaccines Aged Out No longer e ligible based on patient's age to complete this topic [facility]-Rotavirus Vaccines Aged Out No lo nger eligible based on patient's age to complete this topic Procedures Procedure Name Priority Date/Time Associated Diagnosis Comments OLIGOCLONAL BAND PROFILE (SO) Routine 07/03/2025 11:04 AM EDT MYELIN BASIC PROTEIN, CSF (SO) Routine 07/03/2025 11:04 AM EDT MULTIPLE SCLEROSIS PROFILE PANEL (SO) Routine 07/03/2025 11:04 AM EDT CSF, LLSPIN, PATHOLOGIST INTERPRETATION Routine 07/03/2025 11:01 AM EDT NETTA VIRUS (JCV) QUANTITATIVE REAL-TIME PCR (SO) Routine 07/03/2025 11:01 AM EDT KURT CHASE DNA BY PCR(CSF) Routine 07/03/2025 11:01 AM EDT WEST NILE VIRUS ANTIBODIES, IGG AND IGM BY ADIN, CSF (SO) Routine 07/03/2025 11:01 AM EDT ANGIOTENSIN CONVERTING ENZYME, CSF Routine 07/03/2025 11:01 AM EDT TREPONEMA PALLIDUM (VDRL), CEREBROSPINAL FLUID WITH REFLEX TO TITER (SO) Routine 07/03/2025 11:01 AM EDT LACTATE DEHYDROGENASE TOTAL, BODY FLUID (SO) Routine 07/03/2025 11:01 AM EDT TOTAL PROTEIN, CSF Routine 07/03/2025 11 :01 AM EDT GLUCOSE, CSF Routine 07/03/2025 11:01 AM EDT LACTIC ACID, CSF Routine 07/03/2025 11:0 1 AM EDT LLSPIN CSF Routine 07/03/2025 11:01 AM EDT IR LUMBAR PUNCTURE Routine 07/03/2025 8: 35 AM EDT IIH (idiopathic intracranial hypertension) NON-GYNECOLOGIC CYTOLOGY Routine 07/03/2025 8:30 AM EDT IIH (idiopathic intracranial hypertension) CSF NOTIFICATION ORDER - PERFORMABLE Routine 07/03/2025 8:30 AM EDT IIH (idiopathic intracranial hypertension) MENINGITIS/ENCEPHALITI S PANEL BY PCR Routine 07/03/2025 8:30 AM EDT FREEZE AND HOLD Routine 07/03/2025 8:30 AM EDT AFB CULTURE, NON RESPIRATORY SOURCE AND ACID FAST STAIN Routine 07/03/2025 8:30 AM EDT FUNGAL CULTURE, CEREBROSPINAL FLUID (CSF) AND LIVIER INK Routine 07/03/2025 8:30 AM EDT CRYPTOCOCCAL ANTIGEN, CSF Routine 07/03/2025 8:30 AM EDT CEREBROSPINAL FLUID (CSF) CULTURE AND GRAM STAIN Routine 07/03/2025 8:30 AM EDT OLIGOCLONAL BAND, BLOOD Routine 07/03/2025 7:36 AM EDT IIH (idiopathic intracranial hypertension) CSF PANEL Routine 07/03/2025 7:36 AM EDT IIH (idiopathic intracranial hypertension) PROTHROMBIN TIME(PT) / INR Routine 06/24/2025 1:09 PM EDT IIH (idiopathic intracranial hypertension) APTT Routine 06/24/2025 1:09 PM EDT IIH (idiopathic intracranial hypertension) CBC WITH AUTO DIFFERENTIAL Routine 06/24/2025 1:09 PM EDT IIH (idiopathic intracranial hypertension) OCT, RETINA - OU - BOTH EYES Routine 06/20/2025 1:57 PM EDT IIH (idiopathic intracranial hypertension) OCT, OPTIC NERVE - OU - BOTH EYES Routine 06/20/2025 1:57 PM EDT IIH (idiopathic intracranial hypertension) AUTOMATED VISUAL FIELD, EXTENDED - OU - BOTH EYES Routine 06/20/2025 1:55 PM EDT IIH (idiopathic intracranial hypertension) MR VENOGRAM HEAD W IV CONTRAST STAT 05/22/2025 4:55 PM EDT IIH (idiopathic intracranial hypertension) MR HEAD W AND WO IV CONTRAST STAT 05/22/2025 4:55 PM EDT IIH (idiopathic intracranial hypertension) from Last 3 Months Results * OLIGOCLONAL BAND PROFILE (SO) (07/03/2025 11:04 AM EDT) [facility] IMMUNOGLOBULIN G CSF (OLIG) 3.8 0.0 - 6.0 mg/dL 07/06/2025 6:54 AM EDT [facility] ([employer]) Immunoglobulin G 968 768 - 1632 mg/dL 07/06/2025 6:54 AM EDT [facility] ([employer]) ALBUMIN BY NEPHELOMETRY (OLIG) 3545 3500 - 5200 mg/dL 07/06/2025 6:54 AM EDT [facility] ([employer]) ALBUMIN INDEX (OLIG) 7.3 0.0 - 9.0 ratio 07/06/2025 6:54 AM EDT [facility] ([employer]) CSF IGG SYNTHESIS RATE (OLIG) <0.0 <=8.0 mg/d 07/06/2025 6:54 AM EDT [facility] ([employer]) CSF OLIGOCLONAL BANDS (OLIG) Negative Negative 07/06/2025 6:54 AM EDT [facility] ([employer]) INTERPRETATION (OLIG) See Note 07/06/2025 6:54 AM EDT [facility] ([employer]) CSF IGG/ALBUMIN RATIO (OLIG) 0.15 0.09 - 0.25 ratio 07/06/2025 6:54 AM EDT [facility] ([employer]) IGG INDEX (OLIG) 0.54 0.28 - 0.66 ratio 07/06/2025 6:54 AM EDT [facility] ([facility]) OLIGOCLONAL BANDS NUMBER, CSF (OLIG) Matching 0 - 1 Bands 07/06/2025 6:54 AM EDT [facility] ([facility]) Albumin,CSF 26 0 - 35 mg/dL 07/06/2025 6:54 AM EDT [facility] ([facility]) Blood specimen (specimen) 07/03/2025 11:04 AM EDT 07/03/2025 11:04 AM EDT Narrative [facility] [employer]) - 07/06/2025 6:54 AM EDT Clinical Interpretation: [...] caution when interpreting the results. Performed By: [facility] [address] [place] [address] Rope Laying Machine Operator: Omar Dutton MD, PhD CLIA Number: [id number] us Radha Zaidi MD LAB REF LAB BLOOD AND FLUID ORD Final Result [facility] [employer] [facility]) [address] [phone] * Myelin basic protein, CSF (07/03/2025 11:04 AM EDT) MYELIN BASIC PROTEIN 2.15 0.00 - 5.50 ng/mL 07/06/2025 3:47 PM EDT [facility] ([facility]) Cerebrospinal Fluid Lumbar puncture / Unknown Non-blood Collection / Unknown 07/03/2025 11:04 AM EDT 07/03/2025 11:04 AM EDT Narrative [facility] [employer]) - 07/06/2025 3:47 PM EDT INTERPRETIVE INFORMATION: Myelin Basic Protein This test was developed and its performance characteristics determined by [facility]. It has not been cleared or approved by the US Food and Drug Administration. This test was performed in a CLIA certified laboratory and is intended for clinical purposes. Performed By: [facility] [address] [place] [address] Rope Laying Machine Operator: Omar Dutton MD, PhD CLIA Number: [id number] Radha Zaidi MD LAB BODY FLUIDS AND STOOLS O RDERABLES Final Result [facility] ([facility]) [address] [facility] [place] [place] [address] * LLSpin CSF (07/03/2025 11:01 AM EDT) Unspun Color, CSF Colorless Colorless LAB HEMATOLOGY METHOD 07/03/2025 5:04 PM EDT [facility] Unspun Clarity, CSF Clear Clear LAB HEMATOLOGY METHOD 07/03/2025 5:04 PM EDT [facility] Spun Color, CSF LAB HEMATOLOGY METHOD 07/03/2025 5:04 PM EDT [facility] Comment:Test Not Indicated Spun Clarity, CSF LAB HEMATOLOGY METHOD 07/03/2025 5:04 PM EDT [facility] Comment:Test Not Indicated Volume CSF 6.0 cc LAB HEMATOLOGY METHOD 07/03/2025 5:04 PM EDT [facility] Tube Number, CSF Tube 4 LAB HEMATOLOGY METHOD 07/03/2025 5:04 PM EDT [facility] Red Blood Cell Count, CSF 2 0 uL uL LAB HEMATOLOGY METHOD 07/03/2025 5:04 PM EDT [facility] Comment:Test performed by ma nual method. Total Nucleated Cell Count, CSF 1 0 - 5 L LAB HEMATOLOGY METHOD 07/03/2025 5:04 PM EDT [facility] Comment:Test performed by ma nual method. Blasts %, CSF LAB HEMATOLOGY METHOD 07/03/2025 5:04 PM EDT [facility] Neutrophils %, CSF LAB HEMATOLOGY METHOD 07/03/2025 5:04 PM EDT [facility] Comment:Too few to count Lymphocytes %, CSF LAB HEMATOLOGY METHOD 07/03/2025 5:04 PM EDT [facility] Comment:Too few to count Monocytes/Macro phages %, CSF LAB HEMATOLOGY METHOD 07/03/2025 5:04 PM EDT [facility] Comment:Too few to count Eosinophils %, CSF LAB HEMATOLOGY METHOD 07/03/2025 5:04 PM EDT [facility] Comment:Too few to count Basophils %, CSF LAB HEMATOLOGY METHOD 07/03/2025 5:04 PM EDT [facility] Comment:Too few to count Lymphoma Cells %, CSF LAB HEMATOLOGY METHOD 07/03/2025 5:04 PM EDT [facility] Other Cells %, CSF LAB HEMATOLOGY METHOD 07/03/2025 5:04 PM EDT [facility] Blasts Absolute, CSF LAB HEMATOLOGY METHOD 07/03/2025 5:04 PM EDT [facility] Neutrophils Absolute, CSF LAB HEMATOLOGY METHOD 07/03/2025 5:04 PM EDT [facility] Comment:Too few to count Lymphocytes Absolute, CSF LAB HEMATOLOGY METHOD 07/03/2025 5:04 PM EDT [facility] Comment:Too few to count Monocytes/Macro phages Absolute, CSF LAB HEMATOLOGY METHOD 07/03/2025 5:04 PM EDT [facility] Comment:Too few to count Eosinophils Absolute, CSF LAB HEMATOLOGY METHOD 07/03/2025 5:04 PM EDT [facility] Comment:Too few to count Basophils Absolute, CSF LAB HEMATOLOGY METHOD 07/03/2025 5:04 PM EDT [facility] Comment:Too few to count Other Cells Absolute, CSF LAB HEMATOLOGY METHOD 07/03/2025 5:04 PM EDT [facility] Lymphoma Cells Absolute, CSF LAB HEMATOLOGY METHOD 07/03/2025 5:04 PM EDT [facility] Cerebrospinal Fluid Cerebrospinal fluid specimen / Unknown Non-blood Collection / Unknown 07/03/2025 11:01 AM EDT 07/03/2025 11:01 AM EDT us Radha Zaidi MD LAB BODY FLUIDS AND STOOLS O RDERABLES Final Result [facility] [address] [place] [address] * Lactate Dehydrogenase Total, Body Fluid (SO) (07/03/2025 11:01 AM EDT) Pathologist [facility] Lactate Dehydrogenase Total, Body Fluid 15 U/L 07/05/2025 6:56 PM EDT [facility] LDH Fluid Source CSF 07/05/20 6:56 PM EDT [facility] ([facility]) Cerebrospinal Fluid Non-blood Collection / Unknown 07/03/2025 11:01 AM EDT 07/03/2025 11:01 AM EDT Narrative [facility] ([facility]) - 07/05/2025 6:56 PM EDT INTERPRETIVE INFORMATION: Lactate Dehydrogenase Total, Body Fluid For information on body fluid reference ranges and/or interpretive guidance visit [email or web address] This test was developed and its performance characteristics determined by [facility]. It has not been cleared or approved by the US Food and Drug Administration. This test was performed in a CLIA certified laboratory and is intended for clinical purposes. Performed By: [facility] [address] [place] [address] Rope Laying Machine Operator: Omar Dutton MD, PhD CLIA Number: [id number] us Radha Zaidi MD LAB REF LAB BLOOD AND FLUID ORD Final Result [facility] ([facility]) [address] [place] [address] * KURT CHASE DNA BY PCR(CSF) (SO) (07/03/2025 11:01 AM EDT) Pathologist [facility] Kurt Chase PCR CSF Not Detected Not Detected IU/mL 07/05/2025 8:23 AM EDT [facility] ([employer]) Comment: Assay Range: 52 IU/mL to 1.69E+08 IU/mL The limit of quantitation (LOQ) is 52 IU/mL. EBV DNA detected below the LOQ will be reported as Detected:<52 IU/mL. This test was developed and its performance characteristics determined by [facility]. It has not been cleared or approved by the U.S. Food and Drug Administration. Results should be used in conjunction with clinical findings, and should not form the sole basis for a diagnosis or treatment decision. Testing Performed at: [facility] [address] [place] [address], [address] [place] [address] Director Of Counterintelligence: Edwardo Guadalupe, PhD [facility] ([facility]) CLIA # [id number] FLAG Interpretation: A = Abnormal, H = High, L = Low Cerebrospinal Fluid Cerebrospinal fluid specimen / Unknown Non-blood Collection / Unknown 07/03/2025 11:01 AM EDT 07/03/2025 11:01 AM EDT Narrative [facility] (BEAKER) - 07/05/2025 8:23 AM EDT Release to patient in [facility]->Immediate us Radha Zaidi MD LAB BODY FLUIDS AND STOOLS O RDERABLES Final Result Performing Organization Address [facility] de Phone Number [facility] ([employer]) * VDRL CSF with Reflex to Titer (07/03/2025 11:01 AM EDT) T.PALLIDUM (VDRL) CSF REFLEX Non Reactive Non Reactive 07/05/2025 4:34 PM EDT [facility] ([employer]) Cerebrospinal Fluid Cerebrospinal fluid specimen / Unknown Non-blood Collection / Unknown 07/03/2025 11:01 AM EDT 07/03/2025 11:01 AM EDT Narrative [facility] ([employer]) - 07/05/2025 4:34 PM EDT Because the VDRL was Non Reactive, the VDRL titer was not performed. Performed By: [facility] [address] [place] [address] Rope Laying Machine Operator: Omar Dutton MD, PhD CLIA Number: [id number] us Radha Zaidi MD LAB BODY FLUIDS AND STOOLS O RDERABLES Final Result Performing Organization Address [facility] Co de Phone Number [facility] ([employer]) [address] [place] [address] * NETTA Polyoma Virus Quantitative by PCR, CSF (07/03/2025 11:01 AM EDT) NETTA POLYOMA VIRUS DNA, QN,CSF Not Detected Not Detected copies/mL 07/04/2025 9:07 PM EDT [facility] [employer]) Comment: Assay Range: 72 copies/mL to 1.00E+08 copies/mL The limit of quantitation (LOQ) is 72 copies/mL. NETTA virus DNA detected below the LOQ will be reported as Detected:<72 copies/mL. This test was developed and its performance characteristics determined by [facility]. It has not been cleared or approved by the U.S. Food and Drug Administration. Results should be used in conjunction with clinical findings, and should not form the sole basis for a diagnosis or treatment decision. Testing Performed at: [facility] [address] [place] [address], [address] [place] [address] Director Of Counterintelligence: Edwardo Guadalupe, PhD [facility] ([facility]) CLIA # [id number] FLAG Interpretation: A = Abnormal, H = High, L = Low Cerebrospinal Fluid Cerebrospinal fluid specimen / Unknown Non-blood Collection / Unknown 07/03/2025 11:01 AM EDT 07/03/2025 11:01 AM EDT Narrative [facility] (HERMINIA) - 07/04/2025 9:07 PM EDT Release to patient in [facility]->Immediate us Radha Zaidi MD LAB BODY FLUIDS AND STOOLS O RDERABLES Final Result [facility]) * Angiotensin Converting Enzyme, CSF (07/03/2025 11:01 AM EDT) ANGIOTENSIN CONVERTING ENZYME, CSF 1.3 0.0 - 2.5 U/L 07/05/2025 5:09 PM EDT [facility] [employer]) Cerebrospinal Fluid Venous blood specimen / Unknown Non-blood Collection / Unknown 07/03/2025 11:01 AM EDT 07/03/2025 11:01 AM EDT [facility]arrative [facility] [employer] [employer]) - 07/05/2025 5:09 PM EDT This test was developed and its performance characteristics determined by [facility]. It has not been cleared or approved by the US Food and Drug Administration. This test was performed in a CLIA certified laboratory and is intended for clinical purposes. Performed By: [facility] [address] [place] [address] Rope Laying Machine Operator: Omar Dutton MD, PhD CLIA Number: [id number] Radha Zaidi MD LAB BLOOD ORDERABLES Final R esult Performing Organization Address City/[facility]/ZIP Co de Phone Number [facility] [employer]) [address] [place] [address] * CSF, LLSPIN, pathologist interpretation (07/03/2025 11:01 AM EDT) Clinical Diagnosis, CSF, LLSPIN Idiopathic intracranial hypertension 07/04/2025 1:53 PM EDT [facility] Interpretation, CSF, LLSPIN No evidence of malignancy. Rare mononuclear cells. A resident was involved in the service. I attest I examined the relevant preparations for the specimens and confirmed the diagnosis or interpretation. 07/04/2025 1:53 PM EDT [facility] Pathologist Signature, CSF, LLSPIN Reviewed by: Neymar Carreon MD 07/04/2025 1:53 PM EDT [facility] CP ASR DISCLAIMER Yes 07/04/2025 1:53 PM EDT [facility] Cerebrospinal Fluid Cerebrospinal fluid specimen / Unknown Non-blood Collection / Unknown 07/03/2025 11:01 AM EDT 07/03/2025 11:01 AM EDT Radha Zaidi MD LAB BODY FLUIDS AND STOOLS O RDERABLES Final Result [facility] [address] [place] [address] * West Nile virus, CSF (07/03/2025 11:01 AM EDT) WEST NILE VIRUS AB,IGG,CSF 0.04 <=1.29 IV 07/06/2025 5:16 AM EDT [facility] (HERMINIA) WEST NILE VIRUS AB,IGM,CSF 0.00 <=0.89 IV 07/06/2025 5:16 AM EDT [facility] (HERMIN[facility]) Cerebrospinal Fluid Cerebrospinal fluid specimen / Unknown Non-blood Collection / Unknown 07/03/2025 11:01 AM EDT 07/03/2025 11:01 AM EDT Narrative [facility] (HERMINIA) - 07/06/2025 5:16 AM EDT INTERPRETIVE [...] members of the Flaviviridae family, such as Platina encephalitis virus, show extensive cross-reactivity with West [...] developed and its performance characteristics determined by [facility]. It has not been cleared or approved [...] members of the Flaviviridae family, such as Platina encephalitis virus, show extensive cross-reactivity with West [...] developed and its performance characteristics determined by [facility]. It has not been cleared or approved by the US Food and Drug Administration. This test was performed in a CLIA certified laboratory and is intended for clinical purposes. Performed By: [facility] [address] [place] [id number] R[employer] Laying Machine Operator: Omar Dutton MD, PhD CLIA Number: [id number] Radha Zaidi MD LAB BLOOD ORDERABLES Final R esult [facility] ([facility] [address] [place] [address] * Protein, CSF (07/03/2025 11:01 AM EDT) Total Protein, CSF 40 15 - 45 mg/dL 07/03/2025 3:49 PM EDT [facility] Cerebrospinal Fluid Lumbar puncture / Unknown Non-blood Collection / Unknown 07/03/2025 11:01 AM EDT 07/03/2025 11:01 AM EDT Narrative [facility] - 07/03/2025 3:49 PM EDT Blood, when present in CSF, invalidates protein. Interpret results in the context of the patient's condition and other laboratory results. Radha Zaidi MD LAB BODY FLUIDS AND STOOLS O RDERABLES Final Result [facility] [address] [place] [address] * Lactic acid, CSF (07/03/2025 11:01 AM EDT) Lactate, CSF 1.5 1.1 - 2.4 mmol/L 07/03/2025 3:49 PM EDT [facility] Cerebrospinal Fluid Lumbar puncture / Unknown Non-blood Collection / Unknown 07/03/2025 11:01 AM EDT 07/03/2025 11:01 AM EDT Narrative [facility] - 07/03/2025 3:49 PM EDT CSF reference intervals are based on literature values and have not been verified at the [facility]. Radha Zaidi MD LAB BODY FLUIDS AND STOOLS O RDERABLES Final Result Performing Organization Address City/[facility] Co de Phone Number [facility] [address] [place] [address] * (ABNORMAL) Glucose, CSF (07/03/2025 11:01 AM EDT) Glucose, CSF 73(H) 41 - 70 mg/dL 07/03/2025 3:49 PM EDT [facility] Cerebrospinal Fluid Lumbar puncture / Unknown Non-blood Collection / Unknown 07/03/2025 11:01 AM EDT 07/03/2025 11:01 AM EDT Narrative [facility] [facility] - 07/03/2025 3:49 PM EDT CSF glucose values should be approximately 60 % of the plasma values and must always be compared with concurrently measured plasma values for adequate clinical interpretation. No reference ranges have been established for pediatric patients. Radha Zaidi MD LAB BODY FLUIDS AND STOOLS O RDERABLES Final Result Performing Organization Address City/[facility]/ZIP Co de Phone Number [facility] [address] [place] [address] * IR Lumbar Puncture (07/03/2025 8:35 AM [...] AM COMPARISON: MR head reviewed from 05/22/25. MANAGER SECURITY AND SAFETY: Blanca Lanier PA-C SECONDARY ESTATE PLANNING ATTORNEY: RT Wang CONTRAST: 0 cc MEDICATIONS: 1% [...] AM COMPARISON: MR head reviewed from 05/22/25. MANAGER SECURITY AND SAFETY: Blanca Lanier PA-C SECONDARY ESTATE PLANNING ATTORNEY: RT Wang CONTRAST: 0 cc MEDICATIONS: 1% [...] signing this report, I, the attending physician, ayleenat I have personally reviewed the images/data for the aboveexamination(s) and agree with the final edited report. Drafted by Blanca Lanier on 07/03/2025 9:19 AM Final report signed by Shamir Lindquist on 07/08/2025 2:18 PM Radha Zaidi MD IMG IR PROCEDURES Final Resu lt * CSF Panel (07/03/2025 8:30 AM EDT) Cerebrospinal Fluid Lumbar puncture / Unknown Non-blood Collection / Unknown 07/03/2025 8:30 AM EDT 07/03/2025 10:58 AM EDT Radha Zaidi MD LAB BODY FLUIDS AND STOOLS O RDERABLES Final Result Performing Organization Address City/[facility]/ZIP Co de Phone Number [facility] [address] [place] [address] * Fungal Culture, Cerebrospinal Fluid (CSF) and Livier Ink (07/03/2025 8:30 AM EDT) Culture No Fungal Growth at 3 Weeks 07/25/2025 6:41 AM EDT [facility] Livier Ink No fungal elements seen 07/25/2025 6:41 AM EDT [facility] Cerebrospinal Fluid Lumbar puncture / Unknown Non-blood Collection / Unknown 07/03/2025 8:30 AM EDT 07/03/2025 10:58 AM EDT Radha Zaidi MD LAB MICROBIOLOGY - GENERAL O RDERABLES Final Result Performing Organization Address City/[facility]/ZIP Co de Phone Number [facility] [address] [place] [address] * Meningitis/Encephalitis Panel by PCR (07/03/2025 8:30 AM EDT) Escherichia coli K1 PCR Result Not Detected Not Detected 07/03/2025 2:01 PM EDT [facility] Haemophilus influenzae PCR Result Not Detected Not Detected 07/03/2025 2:01 PM EDT [facility] Listeria monocytogenes PCR Result Not Detected Not Detected 07/03/2025 2:01 PM EDT [facility] Neisseria meningitidis PCR Result Not Detected Not Detected 07/03/2025 2:01 PM EDT [facility] Streptococcus agalactiae PCR Result Not Detected Not Detected 07/03/2025 2:01 PM EDT [facility] Streptococcus pneumoniae PCR Result Not Detected Not Detected 07/03/2025 2:01 PM EDT [facility] Cytomegalovirus (CMV) PCR Result Not Detected Not Detected 07/03/2025 2:01 PM EDT [facility] Enterovirus (EV) PCR Result Not Detected Not Detected 07/03/2025 2:01 PM EDT [facility] Herpes Simplex Virus 1 (HSV-1) PCR Result Not Detected Not Detected 07/03/2025 2:01 PM EDT [facility] Herpes Simplex Virus 2 (HSV-2) PCR Result Not Detected Not Detected 07/03/2025 2:01 PM EDT [facility] Human Herpes Virus 6 (HHV-6) PCR Result Not Detected Presumptive Negative 07/03/2025 2:01 PM EDT [facility] Human Parechovirus (HPeC) PCR Result Not Detected Not Detected 07/03/2025 2:01 PM EDT [facility] Varicella Zoster Virus (VZV) PCR Result Not Detected Not Detected 07/03/2025 2:01 PM EDT [facility] Cryptococcus neoformans/gattii PCR Result Not Detected Not Detected 07/03/2025 2:01 PM EDT [facility] Cerebrospinal Fluid Lumbar puncture / Unknown Non-blood Collection / Unknown 07/03/2025 8:30 AM EDT 07/03/2025 10:58 AM EDT [facility] - 07/03/2025 2:01 PM EDT This [...] on test performance has not been evaluated. Radha Zaidi MD LAB MICROBIOLOGY - GENERAL O RDERABLES Final Result Performing Organization Address City/[facility] Co de Phone Number [facility] [address] [place] [address] * Cryptococcal Antigen, CSF (07/03/2025 8:30 AM EDT) Cryptococcal Antigen Result (CSF) Negative Negative 07/03/2025 12:37 PM EDT [facility] Cerebrospinal Fluid Lumbar puncture / Unknown Non-blood Collection / Unknown 07/03/2025 8:30 AM EDT 07/03/2025 10:58 AM EDT Radha Zaidi MD LAB MICROBIOLOGY - GENERAL O RDERABLES Final Result Performing Organization Address [facility] Co de Phone Number [facility] [address] [place] [address] * Cerebrospinal Fluid (CSF) Culture and Gram Stain (07/03/2025 8:30 AM EDT) Culture No growth at day 4 2024 12:16 PM EDT [facility] Gram Stain No polymorphonuclear leukocytes seen 07/06/2025 12:16 PM EDT [facility] Gram Stain No organisms seen 025 12:16 PM EDT [facility] Cerebrospinal Fluid Lumbar puncture / Unknown Non-blood Collection / Unknown 07/03/2025 8:30 AM EDT 07/03/2025 10:58 AM EDT Radha Zaidi MD LAB MICROBIOLOGY - GENERAL O RDERABLES Final Result Performing Organization Address [facility] Co de Phone Number [facility] [address] [place], [place] [id number] * Non-Gynecologic Cytology (07/03/2025 8:30 AM EDT) Case Report Cytology Case: [id number] Authorizing Provider: Radha Zaidi MD Collected: 07/03/2025 0830 Ordering Location: [facility] Received: 07/03/2025 1459 Care Pathologist: Jolie Phelan MD Specimen: Lumbar Puncture, CEREBROSPINAL FLUID 07/04/2025 6:17 PM EDT [facility] Final Diagnosis A. CEREBROSPINAL FLUID - NO EVIDENCE OF MALIGNANCY, RARE MONONUCLEAR CELLS 07/04/2025 6:17 PM EDT [facility] at 1817 EDT Clinical History IIH 07/04/2025 6:17 PM EDT [facility] Previous Cancer No 07/04/2025 6:17 PM EDT [facility] Gross Description A. CEREBROSPINAL FLUID 0 ml's of clear fluid in tube #1, 2.0 ml's of clear fluid in tube #2, 0.5 ml's of clear fluid in tube #3 and 0.2 ml's of clear fluid in tube #4 all for thinprep 07/04/2025 6:17 PM EDT [facility] Cerebrospinal Fluid Lumbar puncture / Unknown Non-blood Collection / Unknown 07/03/2025 8:30 AM EDT 07/03/2025 2:59 PM EDT us Radha Zaidi MD LAB CYTOLOGY ORDERABLES Cynthia l Result [facility] [address] [place] [address] * Oligoclonal Band, Blood (07/03/2025 7:36 AM EDT) MS Profile Specimen Yes 07/03/2025 10:01 AM EDT [facility] Blood Venous blood specimen / Unknown Venipuncture / Unknown 07/03/2025 7:36 AM EDT 07/03/2025 8:53 AM EDT Radha Zaidi MD LAB REF LAB BLOOD AND FLUID ORD Final Result Performing Organization Address City/[facility]/ZIP Co de Phone Number [facility] [address] [place] [address] * APTT (06/24/2025 1:09 PM EDT) aPTT 26 25 - 35 sec 06/24/2025 3:04 PM EDT [facility] Blood Venous blood specimen / Unknown Venipuncture / Unknown 06/24/2025 1:09 PM EDT 06/24/2025 1:09 PM EDT Radha Zaidi MD LAB BLOOD ORDERABLES Final R esult Performing Organization Address [facility] Co de Phone Number [facility] [address] [place] [address] * PT/INR (06/24/2025 1:09 PM EDT) Prothrombin Time 12.7 12.0 - 14.3 sec 06/24/2025 3:04 PM EDT [facility] INR 0.9 0.9 - 1.1 06/24/2025 3:04 PM EDT [facility] Blood Venous blood specimen / [...] INR 2.5 to 3.5 Prevention of recurrent VT INR 2.5 to 3.5 us Radha Zaidi MD LAB BLOOD ORDERABLES Final R esult Performing Organization Address City/[facility]/ZIP Co de Phone Number [facility] [address] [place] [address] * CBC and Differential (06/24/2025 1:09 PM EDT) WBC Count 9.39 3.70 - 10.30 10*3/uL LAB HEMATOLOGY METHOD 06/24/2025 2:40 PM EDT [facility] RBC Count 4.67 4.60 - 6.10 10*6/uL LAB HEMATOLOGY METHOD 06/24/2025 2:40 PM EDT [facility] HGB 14.8 13.7 - 17.5 g/dL LAB HEMATOLOGY METHOD 06/24/2025 2:40 PM EDT [facility] HCT 45.5 40.0 - 51.0 % LAB HEMATOLOGY METHOD 06/24/2025 2:40 PM EDT [facility] Platelet Count 336 155 - 369 10*3/uL LAB HEMATOLOGY METHOD 06/24/2025 2:40 PM EDT [facility] MCV 97 79 - 98 fL LAB HEMATOLOGY METHOD 06/24/2025 2:40 PM EDT [facility] MCH 31.7 26.0 - 32.0 pg LAB HEMATOLOGY METHOD 06/24/2025 2:40 PM EDT [facility] MCHC 32.5 30.7 - 35.5 g/dL LAB HEMATOLOGY METHOD 06/24/2025 2:40 PM EDT [facility] RDW 12.8 11.5 - 14.5 % LAB HEMATOLOGY METHOD 06/24/2025 2:40 PM EDT [facility] MPV 9.3 8.8 - 12.5 fL LAB HEMATOLOGY METHOD 06/24/2025 2:40 PM EDT [facility] nRBC 0.0 <=0.0 per 100 WBCs LAB HEMATOLOGY METHOD 06/24/2025 2:40 PM EDT [facility] Differential Type Automated LAB HEMATOLOGY METHOD 06/24/2025 2:40 PM EDT [facility] Neutrophils % 58 % LAB HEMATOLOGY METHOD 06/24/2025 2:40 PM EDT [facility] Lymphocytes % 31 % LAB HEMATOLOGY METHOD 06/24/2025 2:40 PM EDT [facility] Monocytes % 5 % LAB HEMATOLOGY METHOD 06/24/2025 2:40 PM EDT [facility] Eosinophils % 5 % LAB HEMATOLOGY METHOD 06/24/2025 2:40 PM EDT [facility] Basophils % 1 % LAB HEMATOLOGY METHOD 06/24/2025 2:40 PM EDT [facility] Immature Granulocytes % 0 % LAB HEMATOLOGY METHOD 06/24/2025 2:40 PM EDT [facility] Neutrophils Absolute 5.38 1.60 - 6.10 10*3/uL LAB HEMATOLOGY METHOD 06/24/2025 2:40 PM EDT [facility] Lymphocytes Absolute 2.91 1.20 - 3.90 10*3/uL LAB HEMATOLOGY METHOD 06/24/2025 2:40 PM EDT [facility] Monocytes Absolute 0.49 0.30 - 0.90 10*3/uL LAB HEMATOLOGY METHOD 06/24/2025 2:40 PM EDT [facility] Eosinophils Absolute 0.50 0.00 - 0.50 10*3/uL LAB HEMATOLOGY METHOD 06/24/2025 2:40 PM EDT [facility] Basophils Absolute 0.07 0.00 - 0.10 10*3/uL LAB HEMATOLOGY METHOD 06/24/2025 2:40 PM EDT [facility] Immature Granulocytes Absolute 0.04 0.00 - 0.06 10*3/uL LAB HEMATOLOGY METHOD 06/24/2025 2:40 PM EDT [facility] Blood Venous blood specimen / Unknown Venipuncture / Unknown 06/24/2025 1:09 PM EDT 06/24/2025 1:09 PM EDT Narrative [facility]ALTH[facility]ARE LAB - 06/24/2025 2:40 PM EDT Therapeutic decision making should be based on absolute values, rather than percentages. Radha Zaidi MD LAB BLOOD ORDERABLES Final R esult [facility] [address] [place] [address] * OCT, Retina - OU - Both Eyes (06/20/2025 1:57 PM EDT) Anatomical Region Laterality Modality Head Optical Coherenc e Tomography Narrative 06/20/2025 1:57 PM EDT Right Eye Quality was good. Findings include normal observations. Left Eye Quality was good. Findings include normal observations. Radha Zaidi MD OPHTH TOMOGRAPHY Final Resul [...] analysis is intact us Radha Zaidi MD OPH TOMOGRAPHY Final Resul t * Automated Visual [...] - 2.09 db us Radha Zaidi MD [facility] VISUAL FIELD Final Res ult * MR Venogram Head w IV Contrast (05/22/2025 4:55 PM EDT) Anatomical Region Laterality Modality Head Magnetic Resonan ce Impressions 05/24/2025 8:13 AM EDT Motion degraded study. 1. No evidence of dural venous sinus or cortical vein thrombosis. 2. Stenosis in the lateral transverse sinuses near the transverse sigmoid junction. Finding is highly suggestive of idiopathic intracranial hypertension. CRITICAL RESULT: No. COMMUNICATION: Per this written report. Drafted by Mirza Dc MD on 05/24/2025 8:03 AM Final report signed by Mirza Dc MD on 05/24/2025 8:13 AM Narrative 05/24/2025 8:13 AM EDT CLINICAL INDICATION: IIH TECHNIQUE: Postcontrast sagittal dynamic MR venography sequences were obtained. Subtraction images were created and MIP images were created. A total of 15.9 mL of Gadavist were administered intravenously. COMPARISON: None. FINDINGS: Diagnostic Quality: Motion Degraded. There is normal enhancement of the superior sagittal, transverse and sigmoid sinuses with no filling defects to suggest thrombosis. The straight sinus, Vein of Raphael and deep venous system are grossly normal. No cortical vein thrombosis is present. Other Findings: Stenosis in the lateral transverse sinuses near the transverse sigmoid junction. Procedure Note Mirza Dc MD - 05/24/2025 CLINICAL INDICATION: IIH TECHNIQUE: Postcontrast sagittal dynamic MR venography sequences were obtained.Subtraction images were created and MIP images were created. A total of15.9 mL of Gadavist were administered intravenously. COMPARISON: None. FINDINGS: Diagnostic Quality: Motion Degraded. There is normal enhancement of the superior sagittal, transverse andsigmoid sinuses with no filling defects to suggest thrombosis. Thestraight sinus, Vein of Raphael and deep venous system are grossly normal.No cortical vein thrombosis is present. Other Findings: Stenosis in the lateral transverse sinuses near thetransverse sigmoid junction. IMPRESSION: Motion degraded study. 1.No evidence of dural venous sinus or cortical vein thrombosis. 2.Stenosis in the lateral transverse sinuses near the transverse sigmoidjunction. Finding is highly suggestive of idiopathic intracranialhypertension. CRITICAL RESULT: No. COMMUNICATION: Per this written report. Drafted by Mirza Dc MD on 05/24/2025 8:03 AM Final report signed by Mirza Dc MD on 05/24/2025 8:13 AM us Radha Zaidi MD IMG MRI PROCEDURES Final Res ult * MR Head w and wo IV Contrast (05/22/2025 4:55 PM EDT) Anatomical Region Laterality Modality Head Magnetic Resonan ce Impressions 05/24/2025 8:21 AM EDT Significantly motion degraded study. Expanded sella, nonspecific but should be correlated with idiopathic intracranial hypertension. Otherwise unremarkable brain MRI. CRITICAL RESULT: No. COMMUNICATION: Per this written report. Drafted by Mirza Dc MD on 05/24/2025 8:02 AM Final report signed by Mirza Dc MD on 05/24/2025 8:21 AM Narrative 05/24/2025 8:21 AM EDT CLINICAL INDICATION: IIH TECHNIQUE: Multiplanar multiecho sequences [...] No tonsillar ectopia or mass is present. Procedure Note Mirza Dc MD - 05/24/2025 CLINICAL INDICATION: IIH TECHNIQUE: Multiplanar multiecho sequences were performed through the brain utilizingT1 and T2 weighting, as well as either axial susceptibility weighted orgradient echo sequences, and axial diffusion weighted images. Imaging wasperformed with and without contrast administration: 15.9 mL of Gadavist. COMPARISON: None. FINDINGS: Diagnostic Quality: Motion Degraded. The ventricles and sulci are normal in size. The sella is enlarged andpredominantly fluid filled. There are no definite focal parenchymal lesions or masses. No abnormal intracranial enhancement is present. There is no abnormal parenchymal susceptibility artifact or restricteddiffusion. Vascular Flow Voids: Normal. Paranasal Sinuses and Mastoid Air Cells: Small bilateral mastoideffusions. Orbits: No definite masses within the limitations of the study. Extracranial Findings: None. Craniocervical Junction and Skull Base: No tonsillar ectopia or mass ispresent. IMPRESSION: Significantly motion degraded study. Expanded sella, nonspecific but should be correlated with idiopathicintracranial hypertension. Otherwise unremarkable brain MRI. CRITICAL RESULT: No. COMMUNICATION: Per this written report. Drafted by Mirza Dc MD on 05/24/2025 8:02 AM Final report signed by Mirza Dc MD on 05/24/2025 8:21 AM us Radha Zaidi MD IMG MRI PROCEDURES Final Res ult from Last 3 Months Insurance [employer] Care Teams Greek Professor Relationship Specialty Start Date End Date Pcp, Karely [address] [place] [address] PCP - General Family Medicine 01/18/25
--- OUTSIDE RECORDS SUMMARY | 2025-07-27 18:52 | XMS_ITS | Encounter Summary ---
Author Organization Healthcare Address [address] [place] [address] Care Team Providers Care Check Scaler Name Role Phone Pcp, No Primary Care Provider Unavailabl e Encounter Details Date Type Department Care Team (Late st Contact Info) Description 05/08/2025 Telephone [facility] [address] [place] [address] Radha Zaidi MD [address] [facility] [address] [place] [address] Social History Tobacco Use Types [...] as of this encounter Miscellaneous Notes * Telephone Encounter - PawelChetnana - 05/08/2025 11:58 AM EDT Patient Phone Message Reason for Call: MRI MRA ins Approval Guadalupe Aguilar rep calling with auth info CPT [id number] and [id number] Date: 05/08-07/07/25 for 1 day of services Auth # [id number] # [phone]/ Jeff Best contact number and optimal time of day to reach caller: Guadalupe Aguilar [phone] Note: Please do not reply to this message. Follow-up communication and further actions as a result of this message need to be communicated with the patient directly, if the patient is not active onMyChart. If the patient is active on MyChart, they will receive notification of the communication/outcome via MyChart. documented in this encounter Plan of Treatment Upcoming Encounters Date Type Department Care Team (Late st Contact Info) Description 12/23/2025 10:00 AM EDT Office Visit [facility] [address] [place] [phone] Radha Zaidi MD [address] [facility] [address] [place] [address] documented as of this encounter Visit Diagnoses Not on filedocumented in this encounter Additional Health Concerns Assessment Noted Time A fall risk assessment has been complete d for the patient 01/18/2025 12:37 PM EDT A Body Mass Index follow-up plan has been documented for the patient 01/18/2025 3:07 PM EDT documented as of this encounter Care Teams Check Scaler Relationship Specialty Start Date End Date Pcp, [place] [address] PCP - General Family Medicine 01/18/25 documented as of this encounter
--- OUTSIDE RECORDS SUMMARY | 2025-07-27 18:52 | XMS_ITS | Encounter Summary ---
Author Organization Healthcare Address [address] [place] [address] Care Team Providers Care Customer Sales Service Manager Name Role Phone Pcp, No Primary Care Provider Unavailabl e Encounter Details Date Type Department Care Team (Latest Contact Info) Description 07/02/2025 Travel Social History Tobacco Use Types Packs/Day [...] Description 12/23/2025 10:00 AM EDT Office Visit [facility] [address] [place] [address] Radha Zaidi MD [address] [facility] [address] [place] [address] documented as of this encounter Visit Diagnoses Not on filedocumented in this encounter Additional Health Concerns Assessment Noted Time A fall risk assessment has been complete d for the patient 06/20/2025 10:07 AM EDT A Body Mass Index follow-up plan has been documented for the patient 01/18/2025 3:07 PM EDT documented as of this encounter Care Teams Customer Sales Service Manager Relationship Specialty Start Date End Date Pcp, No [address] [place] [address] PCP - General Family Medicine 01/18/25 documented as of this encounter
--- OUTSIDE RECORDS SUMMARY | 2025-07-27 18:52 | XMS_ITS | Encounter Summary ---
Author Organization Healthcare Address [address] [place] [address] Care Team Providers Care Power Generation Turbine Room Operator Name Role Phone Pcp, No Primary Care Provider Unavailabl e Reason for Visit * Reason Comments Med Refill Encounter Details Date Type Department Care Team (Late st Contact Info) Description 06/10/2025 Refill [facility] [address] [place] [address] Radha Zaidi MD [address] [address] Social History Tobacco Use Types [...] Description 12/23/2025 10:00 AM EDT Office Visit [facility] [address] [place] [address] Radha Zaidi MD [address] [address] documented as of this encounter [...] documented as of this encounter Care Teams Power Generation Turbine Room Operator Relationship Specialty Start Date End Date Pcp, [place] [address] PCP - General Family Medicine 01/18/25 documented as of this encounter
--- OUTSIDE RECORDS SUMMARY | 2025-07-27 18:52 | XMS_ITS | Encounter Summary ---
Author Organization Healthcare Address [address] [place] [address] Care Team Providers Care Suture Gauger Name Role Phone Pcp, No Primary Care Provider Unavailabl e Encounter Details Date Type Department Care Team (Latest Contact Info) Description 07/03/2025 Travel Social History Tobacco Use Types Packs/Day [...] Description 12/23/2025 10:00 AM EDT Office Visit [facility] [address] [place] [phone] Radha Zaidi MD [address] [facility] [address] [place] [address] documented as of this encounter [...] documented as of this encounter Care Teams Suture Gauger Relationship Specialty Start Date End Date Pcp, Karely [address] [place] [address] PCP - General Family Medicine 01/18/25 documented as of this encounter
[2025-07-27 18:54] VITALS: BP 158/101; PULSE 76; RESP 16; TEMP 36.4; O2SAT 99; BMI 48.8
--- NOTE | 2025-07-27 19:16 | CT_ITS ---
PROCEDURE INFORMATION: Exam: CT Abdomen And Pelvis With Contrast Exam date and time: 07/27/2025 7:45 PM Age: 40 years old Clinical indication: Abdominal pain; Flank; Right; Additional info: Right flank pain TECHNIQUE: Imaging protocol: Computed tomography of the abdomen and pelvis with contrast. Radiation optimization: All CT scans at this facility use at least one of these dose optimization techniques: automated exposure control; mA and/or kV adjustment per patient size (includes targeted exams where dose is matched to clinical indication); or iterative reconstruction. Contrast material: ISOVUE; Contrast volume: 75 ml; Contrast route: IV; COMPARISON: CT ABDOMEN PELVIS WO CON 09/28/2020 1:23 PM FINDINGS: Lungs: Scattered benign calcified granulomas in the lung bases and right hilum, of no concern. Diaphragm: Small hiatal hernia. Liver: 19 cm hepatomegaly and mild fatty liver. No masses. Gallbladder and biliary ducts: Cholecystectomy. No biliary dilation. Pancreas: Normal. No ductal dilation. Spleen: Normal. No splenomegaly. Adrenal glands: Normal. No mass. Kidneys and ureters: Question punctate nonobstructive left renal stone. No solid renal masses. Stomach and bowel: Unremarkable. No obstruction. No mucosal thickening. Appendix: No evidence of appendicitis. Intraperitoneal space: Unremarkable. No free air. No significant fluid collection. Vasculature: Unremarkable. No abdominal aortic aneurysm. Lymph nodes: Unremarkable. No enlarged lymph nodes. Urinary bladder: 4 x 4 mm stone layers in the urinary bladder, just adjacent to the right UVJ. There is mild residual right hydroureteronephrosis present with very mild right perinephric fat stranding. Urinary bladder is partially decompressed. Reproductive: Unremarkable as visualized. Bones/joints: Minimal degenerative changes of the thoracolumbar spine. No acute fracture. Soft tissues: Small bilateral fat containing inguinal hernias. Moderately sized fat containing nonobstructive umbilical hernia. IMPRESSION: 4 x 4 mm stone layers in the urinary bladder, just adjacent to the right UVJ. There is mild residual right hydroureteronephrosis present with very mild right perinephric fat stranding. These findings are most consistent with a recently passed right ureteral stone.
[2025-07-27 19:17] LABS: Hematocrit 46.3 % (42.0-52.0); Hemoglobin 16.2 g/dL (14.1-18.0); Immature Granulocytes % 0.2 %; Mean Corpuscular HGB Conc 35.0 g/dL (31.8-35.4); Mean Corpuscular Hemoglobin 32.6 pg (27.0-31.2); Mean Corpuscular Volume 93.2 fl (80-94); Nucleated Red Blood Cells % 0 %; Platelet Count 391 K/mm3 (142-424); Red Blood Count 4.97 M/mm3 (4.60-6.20); Red Cell Distribution Width-SD 42.9 fL; White Blood Count 12.8 K/mm3 (4.8-10.8)
[2025-07-27 19:18] LABS: Microscopic, Urine URINE MICROSCOPIC (MICROSCOPIC)
[2025-07-27 19:18] LABS: Albumin Level 4.4 g/dl (3.5-5.0); Chloride 105 mmol/L (98-107)
[2025-07-27 19:19] LABS: Potassium 3.1 mmoL/L (3.5-5.1); Sodium 139 mmol/L (136-145)
[2025-07-27 19:21] LABS: Alanine Aminotransferase 79 U/L (12-78); Anion Gap 13.1 mEq/L (5-15); Aspartate Amino Transferase 51 U/L (17-59); Blood Urea Nitrogen 14 mg/dl (9-20); Carbon Dioxide 24 mmol/L (22.0-30.0); Creatinine Clearance Estimated 112 mL/min (50-200); Creatinine,Serum 1.00 mg/dl (0.66-1.25); Estimated Glomerular Filt Rate 83 ml/min (>60); GFR (African American) 101 ML/MIN (>60)
[2025-07-27 19:22] LABS: Albumin/Globulin Ratio 1.2 (1.1-1.8); Alkaline Phosphatase 103 U/L (38-126); Bilirubin,Total 0.4 mg/dl (0.2-1.3); Calcium 9.1 mg/dl (8.4-10.2); Globulin 3.6 g/dL (1.3-3.2); Glucose 161 mg/dl (74-100); Lipase 42 U/L (23-300); Total Protein,Serum 8.0 g/dl (6.3-8.2)
[2025-07-27] MEDS: ONDANSETRON 4MG/2ML VIAL 4 MG IV (19:23)
[2025-07-27] MEDS: 0.9 % SODIUM CHLORIDE 1000ML 1,000 ML 999 ML IV (19:23)
[2025-07-27] MEDS: HYDROMORPHONE 2MG/ML SYRINGE 1 MG IV (19:23)
[2025-07-27 19:31] LABS: Color,Urine YELLOW (Yellow); Glucose,Urine (UA) Negative (Negative); Ketones,Urine Negative (Negative); Leukocyte Esterase,Urine Negative (Negative); PH,Urine 6.0 (5.0-8.5); Protein,Urine TRACE (Negative); Specific Gravity, Urine >= 1.030 (1.005-1.030); Urobilinogen,Urine 0.2 EU/dl (0.2)
[2025-07-27 19:39] LABS: Bilirubin,Urine 1+ (Negative)
[2025-07-27] MEDS: IOPAMIDOL-370 (76%);100ML BOTTLE 75 ML IV (19:51)
[2025-07-27] MEDS: SODIUM CHLORIDE 0.9% 10ML SYR (RAD ONLY) 10 ML IV (19:51)
[2025-07-27 19:52] LABS: WBC,Urine Occasional #/hpf (0-3)
[2025-07-27 19:53] LABS: Calcium Oxalate Crystals,Urine 3+ /lpf
[2025-07-27 20:05] VITALS: BP 160/85; PULSE 72; RESP 16; O2SAT 98
--- NOTE | 2025-07-27 20:09 | PC.NURSE ---
family updated in the lobby per patient's request.
[2025-07-27] MEDS: KETOROLAC 30MG/ML VIAL 30 MG IV (21:17)
[2025-07-27 21:27] VITALS: BP 142/90; PULSE 74; RESP 16; TEMP 37.2; O2SAT 98
--- NOTE | 2025-07-27 21:27 | ED_ITS ---
<Statement entered by Randall Stapleton MD - 07/28/25 02:11> I was consulted by the LAURY, and we discussed the complexity of the problems being addressed. I approve the treatment and management plan for this patient's care in the emergency department, thus performing a substantive portion of the medical decision making. Randall Stapleton MD Discharge Plan Disposition Patient Disposition: Home, Self-Care Condition: Good Prescriptions Prescriptions: New ondansetron 4 mg tablet,disintegrating 4 mg PO Q8H PRN (Reason: nausea and vomiting) 3 Days Qty: 9 0RF tamsulosin 0.4 mg capsule 0.4 mg PO DAILY Qty: 7 0RF potassium chloride [Klor-Con M20] 20 mEq tablet,ER particles/crystals 20 meq PO DAILY Qty: 5 0RF No Action ketorolac 10 MG tablet 10 mg PO Q6H 5 Days Qty: 20 0RF cyclobenzaprine 5 MG tablet 5 mg PO Q8HP PRN (Reason: pain/spasm) Qty: 30 0RF Referrals Follow up/Referrals: Kushal Soriano MD [Staff Physician, Urology] - See instructions Lexa Urbano MD [Primary Care Provider, Medical] - See instructions Activity Restrictions/Add. Instructions Additional Instructions/Restrictions: You were seen for a kidney stone. The stone is now in the bladder. Please follow up with urology. Return to the ER if pain is not controlled, vomiting or fever. Clinical Impressions Clinical Impression: Bladder calculi Instructions Patient Instructions: DI for Kidney Stones Print Language Print Language: Icelandic Discharge ED Provider: Randall Stapleton General Adult HPI General Chief complaint: Urogenital-Male Stated complaint: right abdominal and back pain Time Seen by Provider: 07/27/25 19:03 Mode of Arrival: Ambulatory Source of Information: Patient Description of Symptoms (Recalled from ER Triage Doc. by RN): Patient states since about 1400 this afternoon he has been having right flank pain. States he thinks it is a kidney stone, has a history of kidney stones. Has not taken anything for the pain. History of Present Illness HPI narrative: Patient presents complaining of right flank pain that started about 2 or 230 today. Denies any urinary symptoms. He does have a history of kidney stone. He has had some nausea without vomiting. complaint: flank pain Onset (ago): hour(s) Location: back and abdomen Severity: severe Consistency: constant Relieving factors: none Exacerbating factors: none Associated symptoms: negative fever/chills Treatments prior to arrival: none Related Data Previous Rx's ?Medication ?Instructions ?Recorded cyclobenzaprine 5 mg tablet 5 mg PO Q8HP PRN pain/spas m #30 09/28/20 tabs ketorolac 10 mg tablet 10 mg PO Q6H 5 days #20 tabs 09/28/20 ondansetron 4 mg disintegrating 4 mg PO Q8H PRN nausea and 07/27/25 tablet vomiting 3 days #9 tabs potassium chloride 20 mEq 20 meq PO DAILY #5 tabs 07/10 06/03 tablet,extended release(part/cryst) (Klor-Con M) tamsulosin 0.4 mg capsule 0.4 mg PO DAILY #7 caps 07/10 06/03 Allergies Allergy/AdvReac Type Severity Reaction Status Date / Time No Known Allergies Allergy Verified 07/27/25 19:00 [facility] Disclaimer: The information contained in this section may have been updated after the patient was seen, as this information can be updated by other users. Social History Smoking Status: Current every day smoker tobacco type: cigarettes packs per day: 1 alcohol intake: never current occupational status: employed Travel in the last 8 weeks?: None housing: house Have you lived/traveled outside [place] in past 30 days?: No Contact w/someone who lives/traveled outside [place] past 30 days?: No Exposure to someone with infectious disease in past 14 days?: No Do you have a fever (greater than 100.4 F or 38 C)?: No Have you tested positive for COVID-19?: No Exposed to someone with COVID-19 in past 14 days?: No Do you have a sore throat?: No Do you have a cough?: No Do you have any weakness?: No Do you have any diarrhea?: No Are you experiencing any unusual bleeding?: No Do you have any muscle aches/pain?: Yes Do you have any abdominal pain?: Yes Are you experiencing loss of taste or smell?: No Other Medical History Have you received the Flu Vaccine for this season: No Have you received the Pneumonia Vaccine: No ROS Obtained: Yes Systems reviewed as appropriate & no additional complaints except as documented Physical Exam General General appearance: alert and in no apparent distress Head Head exam: atraumatic and normocephalic Eye Eye exam: Present normal appearance and EOMI Chest Chest inspection: Present symmetric chest wall rise Respiratory Respiratory exam: Present normal lung sounds bilaterally; Absent wheezes or stridor Cardiovascular Cardiovascular exam: Present regular rate and normal rhythm; Absent systolic murmur Abdominal Exam Abdominal exam: Present soft; Absent distention Abdominal tenderness: Present RUQ and RLQ Extremities Exam Extremities exam: Present full ROM Neurological Exam Neurological exam: Present alert and oriented X3 Psychiatric Psychiatric exam: Present normal affect and normal mood Skin Skin exam: Present warm, dry and intact Medical Decision Making Medical Records Screening: Per USPSTF and CDC recommendations, given the prevalence of disease in our region, it is our hospital?s policy to screen for HIV and viral Hepatitis for all patients aged 18 and over and those with ongoing risk factors. Max Inquiry Pt receiving controlled substance: No Vital Signs: 07/27/25 18:54 07/27/25 20:05 07/27/25 21:27 Temperature 97.6 F 98.9 F Temperature Source Oral Oral Pulse Rate 72 74 Pulse Rate [Right Brachial] 76 Respiratory Rate 16 16 16 Blood Pressure 160/85 H 142/90 H Blood Pressure [Left Arm] 158/101 H Blood Pressure Mean [Left Arm] 120 Blood Pressure Source [Left Arm] Automatic Cuff Blood Pressure Position Sitting Blood Pressure Position [Left Arm] Sitting 02 Sat by Pulse Oximetry 99 98 Oxygen Delivery Method Room Air Room Air Room Air Lab Data Lab Results 07/27/25 18:51: Urine Color Yellow, Urine Appearance Clear, Urine pH 6.0, Ur Specific Garrison >= 1.030, Urine Protein Trace, Urine Glucose (UA) Negative, Urine Ketones Negative, Urine Blood 2+ A, Urine Nitrate Negative, Urine Bilirubin 1+ A, Urine Urobilinogen 0.2, Ur Leukocyte Esterase Negative, Urine RBC 5-10, Urine WBC Occasional, Ur Squamous Epith Cells 3-5, Calcium Oxalate Crystal 3+, Urine Bacteria None 07/27/25 19:04: WBC 12.8 H, RBC 4.97, Hgb 16.2, Hct 46.3, MCV 93.2, MCH 32.6 H, MCHC 35.0, RDW 12.5, Plt Count 391, MPV 9.3, Neut % (Auto) 71.9, Lymph % (Auto) 18.0, Grant % (Auto) 6.3, Eos % (Auto) 2.9, Baso % (Auto) 0.7, Neut # (Auto) 9.2 H, Lymph # (Auto) 2.3, Grant # (Auto) 0.8, Eos # (Auto) 0.4, Baso # (Auto) 0.1, Sodium 139, Potassium 3.1 L, Chloride 105, Carbon Dioxide 24, Anion Gap 13.1, BUN 14, Creatinine 1.00, Estimated Creat Clear 112, Estimated GFR 83, Est GFR ( Amer) 101, Glucose 161 H, Calcium 9.1, Total Bilirubin 0.4, AST 51, ALT 79 H, Alkaline Phosphatase 103, Total Protein 8.0, Albumin 4.4, Globulin 3.6 H, Albumin/Globulin Ratio 1.2, Lipase 42 07/27/25 19:04 07/27/25 19:04 Orders (Tests/Meds): ED MEDICATIONS Discontinued Medications Generic Name Dose Route Start Last Admin Trade Name Freq PRN Reason Stop Dose Admin Hydromorphone HCl 1 mg 07/27/25 19:09 07/27/25 19:23 Hydromorphone 2mg/Ml Syringe IV 07/27/25 19:10 1 mg ONCE ONE Administration Sodium Chloride 1,000 mls @ 999 mls/hr 07/27/25 19:09 07/27/25 20:30 Sod Chlor 0.9% 1000ml Bag IV 07/27/25 20:09 Infused .Q1H1M ONE Infusion Iopamidol 75 ml 07/27/25 19:44 07/27/25 19:51 Iopamidol-370 (76%);100ml Bottle IV 07/27/25 19:45 75 ml ONCE ONE Administration Ketorolac Tromethamine 30 mg 07/27/25 21:06 07/27/25 21:17 Ketorolac 30mg/Ml Vial IV 07/27/25 21:07 30 mg ONCE ONE Administration Ondansetron HCl 4 mg 07/27/25 19:09 07/27/25 19:23 Ondansetron 4mg/2ml Vial IV 07/27/25 19:10 4 mg ONCE ONE Administration Sodium Chloride 10 ml 07/27/25 19:09 Sodium Chloride 0.9% 10ml Flush Syringe IV 08/26/25 19:08 NEEDED PRN Maintain IV Site Sodium Chloride 10 ml 07/27/25 19:44 07/27/25 19:51 Sodium Chloride 0.9% 10ml Syr (Rad Only) IV 08/26/25 19:43 10 ml NEEDED PRN Administration Maintain IV Site ORDERS Category Date Time Status CT abdomen pelvis w con Stat Cat Scan 07/27/25 19:16 Completed CBC w/Auto Diff [Complete Blood Count Auto Diff] Stat Lab 07/27/25 19:04 Completed CMP [Comprehensive Metabolic Panel] Stat Lab 07/27/25 19:04 Completed Lipase Stat Lab 07/27/25 19:04 Completed UA [Urinalysis and Microscopic] Stat Lab 07/27/25 18:51 Completed Medical Decision Narrative: In summary patient is a in summary patient is a 40-year-old male who presents the emergency department for evaluation of right flank pain. Patient is slightly hypertensive upon arrival, A-fib. Right sided abdominal tenderness on exam. Differential diagnosis includes ureteral stone, diverticulitis, appendicitis, cholecystitis. Initial workup will be conducted with CT abdomen pelvis, labs, urinalysis. Initial inventions include IV fluid bolus, Dilaudid, Zofran. Initial workup reviewed by me shows 4 mm ureteral stone within the bladder, he does have some right sided hydronephrosis. Upon repeat evaluation patient has had acceptable resolution of symptoms. Given this patient given instructions for follow-up with urology and discharged home. Given return precautions. BS >160, drank a soda just prior to arrival. advised to have A1C with PCP. Critical Care Critical Care Time Critical Care Time: No
== END 2025-07-27 21:28 | disposition home or self-care (01) ==
PROVIDERS: Physician Assistant; Emergency Provider Student in an Organized Health Care Education/Training Program; PCP Pediatrics
DX: N21.0 Calculus in bladder (principal); R10.A1 Flank pain, right side; N13.39 Other hydronephrosis; R11.0 Nausea
CPT/HCPCS: 74177; 80053; 81001; 83690; 85025; 96361; 96374; 96375; 99284; J1171; J1885; J2405; J7030; Q9967